=== PATIENT | female | born 1935 | race Caucasian/White ===

== ENCOUNTER → 2018-03-18 12:48 | Outpatient (CLI) | payer MEDICARE, BC, SELFPAY ==
--- NOTE | 2018-03-18 12:48 | CDU_ITS ---
Reason For Study: Carotid bruits Rt. Velocities/BP Lt. Velocities/BP Prox CCA 251.0/33.0 cm/sec. Prox CCA 88.6/20.6 cm/sec. Mid CCA 137.0/23.6 cm/sec. Mid CCA 132.0/26.5 cm/sec. Dist CCA 111.0/19.6 cm/sec. Dist CCA 113.0/22.6 cm/sec. Prox ICA 86.8/27.6 cm/sec. Prox ICA 90.4/21.6 cm/sec. Mid ICA 85.6/27.0 cm/sec. Mid ICA 110.0/32.4 cm/sec. Dist ICA 76.8/22.9 cm/sec. Dist ICA 89.2/26.0 cm/sec. Rt. ICA/CCA = .63. Lt. ICA/CCA = .83. Prox ECA 92.6/11.1 cm/sec. Prox ECA 124.0/15.7 cm/sec. Rt. Vert. 48.1/17.0 cm/sec. Lt. Vert. 15.7/6.7 cm/sec. Right Extracranial There is intimal thickening but no significant atherosclerotic plaque noted in the right common carotid artery. There is heterogeneous, irregular atherosclerotic plaque noted in the right internal carotid artery. There is intimal thickening but no significant atherosclerotic plaque noted in the right external carotid artery. Antegrade flow is noted in the right vertebral artery. Left Extracranial There is no significant atherosclerotic plaque noted in the left common carotid artery. There is heterogeneous, irregular atherosclerotic plaque noted in the left internal carotid artery. There is no significant atherosclerotic plaque noted in the left external carotid artery. Antegrade flow is noted in the left vertebral artery. Procedure Carotid Duplex [id number]. Exam performed in department. Interpretation Summary Minimal plague at the proximal right internal carotid with <50% stenosis. Minimal plague at the proximal left internal carotid with <50% stenosis. Increased velocities bilateral common carotids without plague possibly consistent with increased cardiac output--clinical correlation would be appropriate. Normal flow bilateral external carotids. Patent and antegrade bilateral vertebrals with diminished flow on the left. Ordering Physician: Zahra Linton Referring Physician: Kathy Guevara M.D. Performed By: Rosi Stanford RVT
== END ==
PROVIDERS: Family Provider Internal Medicine; PCP Internal Medicine; Visit Provider Physician Assistant Medical
DX: R09.89 Other specified symptoms and signs involving the circulatory and respiratory systems (principal)
CPT/HCPCS: 93880

== ENCOUNTER → 2018-05-24 15:11 | Outpatient (CLI) | payer MEDICARE, BC, SELFPAY ==
[2018-05-24 16:32] LABS: Absolute Lymphocyte Count 1.87 X10^3/ul (0.83-4.51); Absolute Neutrophil Count 5.1 X10^3/uL (2.0-7.7); Basophil# 0.02 X10^3/uL; Basophil% 0.3 % (0-1); Eosinophil# 0.12 X10^3/uL; Eosinophils% 1.5 % (0-5); Hematocrit 36.8 % (37-47); Hemoglobin 12.1 g/dl (12.0-15.0); Lymphocyte # 1.87 X10^3/ul (4.0); Lymphocyte % 23.9 % (19-41); Mean Corp Hgb Conc 32.9 g/gl (32-36); Mean Corpuscular Hgb 27.4 pg (27.0-32.0); Mean Corpuscular Volume 83.3 fL (81-99); Mean Platelet Vol. 10.5 fl (6.2-12.0); Monocyte# 0.75 X10^3/uL; Monocyte% 9.6 % (0-10); Neutrophil # 5.05 X10^3/uL (2.7-7.7); Neutrophil % 64.6 % (47-70); Platelet Count 239 K/mm3 (150-450); RBC Distribution Width CV 13.8 % (11.6-14.6); RBC Distribution Width SD 41.4 fl (35.1-43.9); Red Blood Count 4.42 M/mm3 (4.2-5.4); White Blood Count 7.8 K/mm3 (4.4-11.0)
[2018-05-24 16:36] LABS: POSITIVE COUNT NO; POSITIVE DIFFERENTIAL NO; POSITIVE MORPHOLOGY NO
[2018-05-24 16:45] LABS: Anion Gap 8 (5-15); BUN 17 mg/dL (7-18); BUN/Creat Ratio 15.5 RATIO (10-20); Calcium,Total 8.9 mg/dL (8.5-10.1); Chloride 102 mmol/L (98-107); EST Glomerular Filtration Rate 51 mL/min (>60); Est Glom Filt Rate - Afr Amer 61 mL/min (>60); Glucose 85 mg/dL (74-106); Potassium 3.8 mmol/L (3.5-5.1); Sodium Level 140 mmol/L (136-145)
[2018-05-24 16:56] LABS: BNP,B-Type NATRIURETIC PEPTIDE 80.2 pg/mL (0-100)
== END ==
PROVIDERS: Family Provider Internal Medicine; PCP Internal Medicine; Visit Provider Physician Assistant Medical
DX: R06.09 Other forms of dyspnea (principal); R53.83 Other fatigue
CPT/HCPCS: 36415; 80048; 83880; 85025

== ENCOUNTER → 2018-08-24 13:47 | Outpatient (CLI) | payer MEDICARE, BC, SELFPAY ==
--- NOTE | 2018-08-24 13:50 | ECHOCS_ITS ---
Procedure This was a 2D Doppler, Color Flow transthoracic echocardiogram. The study was technically difficult. Contrast injection was performed. Exam performed in department. Left Ventricle Sigmoid septum. Left ventricular systolic function is normal. The estimated ejection fraction is 65 %. There is evidence of diastolic dysfunction. No regional wall motion abnormalities noted. Right Ventricle Normal RV size. ICD or pacer leads identified within the right ventricle. Normal systolic function. Atria The left atrium is mildly enlarged. Normal right atrium. ICD or pacer leads identified within the right atrium. No doppler evidence for ASD. Mitral Valve There is moderate mitral annular calcification. Extension of the mitral annular calcification onto the posterior mitral valve leaflet. Trivial mitral valve insufficiency. Tricuspid Valve Normal tricuspid valve. Mild tricuspid valve insufficiency. Right ventricular systolic pressure estimated to be 34 mmHg. Aortic Valve Stable appearing bioprosthetic aortic valve apparatus. Pulmonic Valve The pulmonic valve is not well visualized. Great Vessels Normal sized aortic root. Pericardium/Pleural No pericardial effusion. Medication 22 gauge I.V. with prn adaptor inserted into left arm. Difficult IV stick. Diluted definity 4ml given slow IV push to enhance endocardial definition. MMode/2D Measurements & Calculations RVDd: 3.3 cm LVOT diam: 2.0 cm Ao root diam: 2.1 cm LVOT area: 3.2 cm2 LA dimension: 4.1 cm LAV(MOD-bp): 55.4 ml LA A4 area: 20.0 cm2 RA A4 area: 14.6 cm2 LAV(MOD-bp) Indexed: 30.7 ml/m2 LAV(MOD-sp2): 51.1 ml LAV(MOD-sp4): 57.4 ml Time Measurements MV dec time: 0.35 sec Doppler Measurements & Calculations MV E max kenneth: 123.6 cm/sec Lat Peak E' Kenneth: 3.0 cm/sec Med Peak E' Kenneth: 3.9 cm/sec MV A max kenneth: 153.8 cm/sec E/E' lat: 40.7 E/E' med: 31.9 MV E/A: 0.80 MV V2 max: 152.9 cm/sec Ao V2 max: 162.0 cm/sec LV V1 max: 129.8 cm/sec MV max P.3 mmHg Ao max P.6 mmHg LV V1 max P.7 mmHg MV V2 mean: 93.1 cm/sec Ao V2 mean: 112.9 cm/sec LV V1 mean P.6 mmHg MV mean P.8 mmHg Ao mean P.8 mmHg LV V1 mean: 102.8 cm/sec MV V2 VTI: 48.3 cm Ao V2 VTI: 36.6 cm LV V1 VTI: 32.0 cm MVA(VTI): 2.1 cm2 LEVAR(I,D): 2.8 cm2 LEVAR(V,D): 2.6 cm2 SV(LVOT): 103.5 ml PA V2 max: 92.2 cm/sec TR max kenneth: 278.1 cm/sec TR max P.0 mmHg Interpretation Summary The study was technically difficult. Contrast injection was performed. Left ventricular systolic function is normal. The estimated ejection fraction is 65 %. Sigmoid septum. The left atrium is mildly enlarged. There is moderate mitral annular calcification. Extension of the mitral annular calcification onto the posterior mitral valve leaflet. Trivial mitral valve insufficiency. Mild tricuspid valve insufficiency. Stable appearing bioprosthetic aortic valve apparatus. Right ventricular systolic pressure estimated to be 34 mmHg. There is evidence of diastolic dysfunction. ICD or pacer leads identified within the right atrium ICD or pacer leads identified within the right ventricle. Ordering Physician: Zahra Linton/Viraj Navarro Referring Physician: Zahra Linton Performed By: Mayela Castle, NOY, RVT
== END ==
PROVIDERS: Family Provider Internal Medicine; PCP Internal Medicine; Visit Provider Physician Assistant Medical
DX: I25.810 Atherosclerosis of coronary artery bypass graft(s) without angina pectoris (principal); I35.0 Nonrheumatic aortic (valve) stenosis; I10 Essential (primary) hypertension; G47.33 Obstructive sleep apnea (adult) (pediatric)
CPT/HCPCS: 93306; Q9957; A4216; C8929

== ENCOUNTER → 2018-11-08 13:41 | Outpatient (CLI) | payer MEDICARE, BC, SELFPAY | PROVIDERS: Family Provider Internal Medicine; PCP Internal Medicine; Visit Provider Nurse Practitioner Acute Care | DX: G47.33 Obstructive sleep apnea (adult) (pediatric) (principal) | CPT/HCPCS: 98960; G0463 ==

== ENCOUNTER → 2019-02-15 07:30 | Outpatient (CLI) | payer MEDICARE, BC, SELFPAY ==
--- NOTE | 2019-02-15 10:38 | NEURO ---
NCS and/or EMG Patient Report Ordering Doctor: Braxton Carrero DATE OF SERVICE: 02/15/19 Is a right upper extremity EMG and nerve conduction study performed on this 83-year-old female with a history of severe carpal tunnel syndrome previously diagnosed in 2016. Patient did have carpal tunnel release but reports symptoms have worsened. She is healthy otherwise. Right upper extremity sensory and motor nerve conduction studies performed. The median sensory response on the right is not obtainable, the median motor distal latency is mild to moderately prolonged with severely reduced amplitude and conduction velocity. Compared to the study from 10/22/2016, there is improved distal latency in the right median motor nerve with unchanged amplitude and conduction velocity. The ulnar motor and sensory and radial sensory responses are normal. There is prolongation of the median F wave latency. Right upper extremity needle electromyography is performed. Muscles evaluated included the first dorsal interosseous, abductor pollicis brevis, brachioradialis, biceps, triceps and deltoid muscles. There are large motor units with early recruitment and pathologic spontaneous activity noted in the right abductor pollicis brevis muscle. All other muscles demonstrated normal insertional activity with absence of pathologic spontaneous activity. Motor unit potential recruitment pattern and amplitude was otherwise normal. Impression: Abnormal electrophysiologic study of the right upper extremity consistent with severe carpal tunnel syndrome at the right wrist. Comparison to previous study shows stable/improved conduction of the right median motor nerve however this should be clinically correlated.
== END ==
PROVIDERS: Family Provider Internal Medicine; PCP Internal Medicine; Referring Provider Orthopaedic Surgery; Visit Provider Orthopaedic Surgery
DX: G56.01 Carpal tunnel syndrome, right upper limb (principal)
CPT/HCPCS: 95886; 95909

== ENCOUNTER → 2019-05-05 11:00 | Outpatient (CLI) | payer MEDICARE, BC, SELFPAY ==
[2019-02-28 10:39] VITALS: BMI 31.3
== END ==
PROVIDERS: Family Provider Internal Medicine; PCP Internal Medicine; Referring Provider Nurse Practitioner Family; Visit Provider Nurse Practitioner Family
DX: G47.33 Obstructive sleep apnea (adult) (pediatric) (principal)
CPT/HCPCS: 98960; G0463

== ENCOUNTER → 2019-08-09 09:47 | Outpatient (CLI) | payer MEDICARE, BC, SELFPAY ==
[2019-02-28 10:39] VITALS: BMI 31.3
--- NOTE | 2019-08-09 09:49 | ECHOCS_ITS ---
Reason For Study: valve replacement - eval Procedure This was a 2D Doppler, Color Flow transthoracic echocardiogram. The study was technically difficult. Due to diminished accoustic windows. Contrast injection was performed. Exam performed in department. Left Ventricle Normal LV size. Left ventricular systolic function is normal. The estimated ejection fraction is 65 %. There is evidence of diastolic dysfunction. No regional wall motion abnormalities noted. Right Ventricle Normal RV size. ICD or pacer leads identified within the right ventricle. Normal systolic function. Atria The left atrium is moderately enlarged. Normal right atrium. ICD or pacer leads identified within the right atrium. No doppler evidence for ASD. Mitral Valve There is moderate mitral annular calcification. Extension of the mitral annular calcification onto the posterior mitral valve leaflet. Trivial mitral valve insufficiency. Tricuspid Valve Normal tricuspid valve. Mild tricuspid valve insufficiency. Right ventricular systolic pressure estimated to be 27 mmHg. Aortic Valve Stable appearing bioprosthetic aortic valve apparatus. Pulmonic Valve The pulmonic valve is not well visualized. Trivial pulmonic valve insufficiency identified. Great Vessels Normal sized aortic root. Pericardium/Pleural No pericardial effusion. Medication 22 gauge I.V. with prn adaptor inserted into right arm. Diluted definity 4.0ml given slow IV push to enhance endocardial definition. MMode/2D Measurements & Calculations LVIDd: 3.9 cm IVSd: 1.0 cm LVOT diam: 2.0 cm LVIDs: 2.6 cm LVPWd: 1.0 cm FS: 32.5 % LVOT area: 3.1 cm2 Ao root diam: 2.1 cm LAV(MOD-bp): 99.7 ml LA A4 area: 26.5 cm2 LAV(MOD-bp) Indexed: 55.3 ml/m2 LAV(MOD-sp2): 98.6 ml LAV(MOD-sp4): 98.3 ml LA dimension(2D): 3.8 cm RA A4 area: 16.8 cm2 Time Measurements MV dec time: 0.47 sec Doppler Measurements & Calculations MV E max kenneth: 128.4 cm/sec Lat Peak E' Kenneth: 4.6 cm/sec Med Peak E' Kenneth: 3.8 cm/sec MV A max kenneth: 165.1 cm/sec E/E' lat: 27.6 E/E' med: 33.9 MV E/A: 0.78 MV V2 max: 187.7 cm/sec MV P1/2t max kenneth: 140.1 cm/sec Ao V2 max: 167.2 cm/sec MV max P.1 mmHg MV P1/2t: 139.9 msec Ao max P.2 mmHg MV V2 mean: 106.4 cm/sec MV dec slope: 293.3 cm/sec2 Ao V2 mean: 128.4 cm/sec MV mean P.1 mmHg Ao mean P.1 mmHg MV V2 VTI: 60.3 cm MVA(P1/2t): 1.6 cm2 Ao V2 VTI: 38.1 cm MVA(VTI): 1.6 cm2 LEVAR(I,D): 2.5 cm2 LEVAR(V,D): 2.9 cm2 LV V1 max: 154.7 cm/sec SV(LVOT): 95.1 ml PA V2 max: 91.4 cm/sec LV V1 max P.6 mmHg LV V1 mean P.1 mmHg LV V1 mean: 106.8 cm/sec LV V1 VTI: 30.6 cm TR max kenneth: 243.3 cm/sec TR max P.9 mmHg Interpretation Summary The study was technically difficult. Contrast injection was performed. Left ventricular systolic function is normal. The estimated ejection fraction is 65 %. The left atrium is moderately enlarged. There is moderate mitral annular calcification. Extension of the mitral annular calcification onto the posterior mitral valve leaflet. Trivial mitral valve insufficiency. Mild tricuspid valve insufficiency. Stable appearing bioprosthetic aortic valve apparatus. Trivial pulmonic valve insufficiency identified. Right ventricular systolic pressure estimated to be 27 mmHg. There is evidence of diastolic dysfunction. ICD or pacer leads identified within the right atrium ICD or pacer leads identified within the right ventricle. Ordering Physician: Viraj Navarro Referring Physician: Kathy Guevara Performed By: Claudia Munoz, RDCS, RVT
== END ==
PROVIDERS: Family Provider Internal Medicine; PCP Internal Medicine; Referring Provider Internal Medicine Cardiovascular Disease; Visit Provider Internal Medicine Cardiovascular Disease
DX: I25.810 Atherosclerosis of coronary artery bypass graft(s) without angina pectoris (principal); Z95.3 Presence of xenogenic heart valve
CPT/HCPCS: 93306; Q9957; A4216; C8929

== ENCOUNTER → 2019-08-24 10:14 | Outpatient (CLI) | payer MEDICARE, BC, SELFPAY ==
[2019-02-28 10:39] VITALS: BMI 31.3
--- NOTE | 2019-08-24 10:18 | RAD_ITS ---
STUDY: X-RAY - RIGHT HAND REASON FOR EXAM: Female, 83 years old. Osteoarthritis bilateral hands TECHNIQUE: 3 view(s) of the hand. COMPARISON: None. FINDINGS: Normal radiocarpal articulation. Normal distal radioulnar joint. Normal visualized carpal bones. Normal carpal articulations Normal carpometacarpal articulation of the thumb. Normal second through fifth carpometacarpal joints. Normal metacarpi. There is degenerative arthrosis of the metacarpophalangeal (MCP) joints. Normal interphalangeal joint of the thumb. Normal proximal and distal phalanges of the thumb. Normal metacarpophalangeal joints of the second through fifth fingers. There are mild arthritic changes of the second and third DIP joints. Normal phalanges of the second through fifth fingers. There are several tiny linear radiopaque foreign bodies in the thenar eminence. RAD/Hand Min 3 Views IMPRESSION: Mild arthritic changes of the second and third DIP joints and first metacarpophalangeal joint. There are several tiny linear radiopaque foreign bodies in the thenar eminence. Electronically Signed: Florentino Mustafa MD at 17:25 EDT , Service support ,
--- NOTE | 2019-08-24 10:18 | RAD_ITS ---
STUDY: X-RAY - LEFT HAND REASON FOR EXAM: Female, 83 years old. Osteoarthritis TECHNIQUE: 3 view(s) of the hand. COMPARISON: None. FINDINGS: Normal radiocarpal articulation. Normal distal radioulnar joint. Normal visualized carpal bones. Normal carpal articulations Normal carpometacarpal articulation of the thumb. Normal second through fifth carpometacarpal joints. Normal metacarpi. There is degenerative arthrosis of the metacarpophalangeal (MCP) joints. Normal interphalangeal joint of the thumb. Normal proximal and distal phalanges of the thumb. Normal metacarpophalangeal joints of the second through fifth fingers. There mild arthritic changes of the second through fifth DLP joints. There is a tiny old chip fracture of the base of the fifth proximal phalanx. Several small amorphous soft tissue calcifications are noted in the second, third, and fifth fingers. RAD/Hand Min 3 Views IMPRESSION: Mild arthritic changes as detailed above. Old tiny chip fracture the base of the fifth proximal phalanx. Electronically Signed: Florentino Mustafa MD at 17:26 EDT , Service support ,
[2019-08-24 12:28] LABS: Erythrocyte Sedimentation Rate 17 mm/hr (0-30)
[2019-08-24 12:32] LABS: Absolute Lymphocyte Count 1.52 X10^3/uL (0.83-4.51); Absolute Neutrophil Count 4.4 X10^3/uL (2.0-7.7); Basophil# 0.03 X10^3/uL; Basophil% 0.5 % (0-1); Eosinophil# 0.15 X10^3/uL; Eosinophils% 2.3 % (0-5); Hematocrit 37.5 % (37-47); Hemoglobin 11.8 g/dL (12.0-15.0); Lymphocyte # 1.52 X10^3/ul (4.0); Lymphocyte % 23.1 % (19-41); Mean Corp Hgb Conc 31.5 g/dL (32-36); Mean Corpuscular Hgb 27.1 pg (27.0-32.0); Mean Platelet Vol. 10.6 fl (6.2-12.0); Monocyte# 0.46 X10^3/uL; NRBC Flagged by Analyzer 0 % (0-5); Neutrophil # 4.39 X10^3/uL (2.7-7.7); Neutrophil % 66.8 % (47-70); Platelet Count 207 K/mm3 (150-450); RBC Distribution Width CV 13.7 % (11.6-14.6); RBC Distribution Width SD 42.9 fl (35.1-43.9); Red Blood Count 4.36 M/mm3 (4.2-5.4); White Blood Count 6.6 K/mm3 (4.4-11.0)
[2019-08-24 12:59] LABS: AST(SGOT) 26 U/L (15-37); Alanine Aminotransfer ALT/SGPT 29 U/L (13-56); Albumin, Serum 3.8 g/dL (3.2-5.0); Alkaline Phosphatase 91 U/L (45-117); Anion Gap 6 (5-15); BUN 23 mg/dL (7-18); BUN/Creat Ratio 23.6 RATIO (10-20); CRP < 2.90 mg/L (0.0-3.0); Calcium,Total 9.5 mg/dL (8.5-10.1); Chloride 107 mmol/L (98-107); Creatinine, Serum 0.98 mg/dL (0.55-1.02); EST Glomerular Filtration Rate 58 mL/min (>60); Est Glom Filt Rate - Afr Amer 70 mL/min (>60); Globulin 3.9 g/dL (2.2-4.2); Glucose 92 mg/dL (74-106); Potassium 3.7 mmol/L (3.5-5.1); Protein, Total 7.7 g/dL (6.4-8.2); Rheumatoid Factor < 10.0 IU/mL (<15); Sodium Level 143 mmol/L (136-145)
[2019-08-24 13:38] LABS: Hepatitis B Surface Antibody Reactive; Hepatitis B Surface Antigen Non-Reactive (Nonreactive); Hepatitis C Antibody Non-Reactive (Nonreactive)
[2019-08-25 14:55] LABS: ANTINUCLEAR ANTIBODIES DIRECT Negative (Negative)
[2019-08-28 13:42] LABS: CCP IgG Antibodies 12 units (0-19); Hepatitis B Core AB IgM Negative (Negative)
== END ==
PROVIDERS: Family Provider Internal Medicine; PCP Internal Medicine; Referring Provider Internal Medicine Rheumatology; Visit Provider Internal Medicine Rheumatology
DX: M06.4 Inflammatory polyarthropathy (principal); M19.041 Primary osteoarthritis, right hand; M19.042 Primary osteoarthritis, left hand; G56.03 Carpal tunnel syndrome, bilateral upper limbs; M48.061 Spinal stenosis, lumbar region without neurogenic claudication; I10 Essential (primary) hypertension; E03.9 Hypothyroidism, unspecified; E78.5 Hyperlipidemia, unspecified
CPT/HCPCS: 36415; 73130; 80053; 85025; 85652; 86038; 86140; 86200; 86431; 86705; 86706; 86803; 87340

== ENCOUNTER → 2019-10-24 09:05 | Outpatient (CLI) | payer MEDICARE, BC, SELFPAY ==
[2019-09-20 10:38] VITALS: BMI 31.8
[2019-10-24 10:24] LABS: Absolute Lymphocyte Count 1.25 X10^3/uL (0.83-4.51); Absolute Neutrophil Count 4.8 X10^3/uL (2.0-7.7); Basophil# 0.03 X10^3/uL; Basophil% 0.4 % (0-1); Hematocrit 34.5 % (37-47); Lymphocyte # 1.25 X10^3/ul (4.0); Lymphocyte % 18.5 % (19-41); Mean Corp Hgb Conc 31.9 g/dL (32-36); Mean Corpuscular Hgb 27.6 pg (27.0-32.0); Mean Corpuscular Volume 86.5 fL (81-99); Mean Platelet Vol. 10.4 fl (6.2-12.0); Monocyte# 0.46 X10^3/uL; Monocyte% 6.8 % (0-10); NRBC Flagged by Analyzer 0 % (0-5); Neutrophil # 4.79 X10^3/uL (2.7-7.7); Platelet Count 260 K/mm3 (150-450); RBC Distribution Width CV 13.9 % (11.6-14.6); Red Blood Count 3.99 M/mm3 (4.2-5.4); White Blood Count 6.8 K/mm3 (4.4-11.0)
[2019-10-24 10:37] LABS: ALB/GLOB Ratio 1.1 RATIO (0.9-2.4); AST(SGOT) 32 U/L (15-37); Alanine Aminotransfer ALT/SGPT 29 U/L (13-56); Albumin, Serum 3.7 g/dL (3.2-5.0); Alkaline Phosphatase 82 U/L (45-117); Anion Gap 6 (5-15); BUN 11 mg/dL (7-18); BUN/Creat Ratio 10.4 RATIO (10-20); Calcium,Total 9.4 mg/dL (8.5-10.1); Chloride 102 mmol/L (98-107); Creatinine, Serum 1.06 mg/dL (0.55-1.02); EST Glomerular Filtration Rate 53 mL/min (>60); Est Glom Filt Rate - Afr Amer 64 mL/min (>60); Globulin 3.5 g/dL (2.2-4.2); Glucose 102 mg/dL (74-106); Potassium 3.9 mmol/L (3.5-5.1); Protein, Total 7.2 g/dL (6.4-8.2); Sodium Level 137 mmol/L (136-145)
== END ==
PROVIDERS: Family Provider Internal Medicine; PCP Internal Medicine; Referring Provider Internal Medicine Rheumatology; Visit Provider Internal Medicine Rheumatology
DX: M06.4 Inflammatory polyarthropathy (principal); M19.041 Primary osteoarthritis, right hand; G56.03 Carpal tunnel syndrome, bilateral upper limbs; M48.061 Spinal stenosis, lumbar region without neurogenic claudication; I10 Essential (primary) hypertension; E03.9 Hypothyroidism, unspecified; E78.5 Hyperlipidemia, unspecified; G47.33 Obstructive sleep apnea (adult) (pediatric); I25.10 Atherosclerotic heart disease of native coronary artery without angina pectoris; Z95.3 Presence of xenogenic heart valve; Z95.0 Presence of cardiac pacemaker
CPT/HCPCS: 36415; 80053; 85025

== ENCOUNTER → 2020-01-25 12:20 | Outpatient (CLI) | payer MEDICARE, BC, SELFPAY ==
[2019-09-20 10:38] VITALS: BMI 31.8
[2020-01-25 14:09] LABS: Absolute Lymphocyte Count 1.05 X10^3/uL (0.83-4.51); Absolute Neutrophil Count 3.3 X10^3/uL (2.0-7.7); Basophil# 0.04 X10^3/uL; Basophil% 0.8 % (0-1); Eosinophil# 0.28 X10^3/uL; Eosinophils% 5.3 % (0-5); Hematocrit 31.4 % (37-47); Hemoglobin 9.9 g/dL (12.0-15.0); Lymphocyte # 1.05 X10^3/ul (4.0); Mean Corp Hgb Conc 31.5 g/dL (32-36); Mean Corpuscular Hgb 27.3 pg (27.0-32.0); Mean Corpuscular Volume 86.5 fL (81-99); Mean Platelet Vol. 10.3 fl (6.2-12.0); Monocyte% 11.4 % (0-10); NRBC Flagged by Analyzer 0 % (0-5); Neutrophil # 3.28 X10^3/uL (2.7-7.7); Neutrophil % 62.3 % (47-70); Platelet Count 262 K/mm3 (150-450); RBC Distribution Width CV 14.6 % (11.6-14.6); RBC Distribution Width SD 45.1 fl (35.1-43.9); Red Blood Count 3.63 M/mm3 (4.2-5.4); White Blood Count 5.3 K/mm3 (4.4-11.0)
[2020-01-25 14:24] LABS: ALB/GLOB Ratio 0.9 RATIO (0.9-2.4); AST(SGOT) 25 U/L (15-37); Alanine Aminotransfer ALT/SGPT 26 U/L (13-56); Albumin, Serum 3.4 g/dL (3.2-5.0); Alkaline Phosphatase 72 U/L (45-117); Anion Gap 5 (5-15); BUN 17 mg/dL (7-18); Calcium,Total 9.1 mg/dL (8.5-10.1); Chloride 98 mmol/L (98-107); EST Glomerular Filtration Rate 57 mL/min (>60); Est Glom Filt Rate - Afr Amer 68 mL/min (>60); Globulin 3.6 g/dL (2.2-4.2); Glucose 97 mg/dL (74-106); Potassium 3.7 mmol/L (3.5-5.1); Sodium Level 131 mmol/L (136-145)
== END ==
PROVIDERS: PCP Internal Medicine; Referring Provider Internal Medicine Rheumatology; Visit Provider Internal Medicine Rheumatology
DX: M06.4 Inflammatory polyarthropathy (principal); M19.041 Primary osteoarthritis, right hand; G56.03 Carpal tunnel syndrome, bilateral upper limbs; M48.061 Spinal stenosis, lumbar region without neurogenic claudication; I10 Essential (primary) hypertension; E03.9 Hypothyroidism, unspecified; E78.5 Hyperlipidemia, unspecified; G47.33 Obstructive sleep apnea (adult) (pediatric); I25.10 Atherosclerotic heart disease of native coronary artery without angina pectoris; Z95.3 Presence of xenogenic heart valve; Z95.0 Presence of cardiac pacemaker; Z79.899 Other long term (current) drug therapy
CPT/HCPCS: 36415; 80053; 85025

== ENCOUNTER → 2020-02-16 10:14 | Outpatient (CLI) | payer MEDICARE, BC, SELFPAY ==
[2019-09-20 10:38] VITALS: BMI 31.8
--- NOTE | 2020-02-16 10:25 | RAD_ITS ---
STUDY: X-RAY CHEST REASON FOR EXAM: Female, 84 years old. Cough TECHNIQUE: PA and lateral views of the chest. COMPARISON: 03/24/2016. FINDINGS: Median sternotomy wires. Left-sided cardiac device. A vascular stent and mediastinal clips are noted. Cardiac silhouette unremarkable. Pulmonary vascularity unremarkable. Aorta unremarkable. No focal airspace opacities. No pleural effusions. Moderate to large sized hiatal hernia. Osseous structures intact. No pneumothorax. RAD/Chest PA and Lateral IMPRESSION: No acute cardiopulmonary findings Electronically Signed: Junior Curry, at 21:18 EDT Tel , Service support ,
== END ==
PROVIDERS: PCP Internal Medicine; Referring Provider Internal Medicine; Visit Provider Internal Medicine
DX: R05 Cough (principal)
CPT/HCPCS: 71046

== ENCOUNTER → 2020-03-27 10:57 | Outpatient (CLI) | payer MEDICARE, BC, SELFPAY ==
[2019-09-20 10:38] VITALS: BMI 31.8
[2020-03-27 12:30] LABS: Absolute Lymphocyte Count 1.42 X10^3/uL (0.83-4.51); Absolute Neutrophil Count 5.1 X10^3/uL (2.0-7.7); Basophil# 0.04 X10^3/uL; Basophil% 0.5 % (0-1); Eosinophil# 0.11 X10^3/uL; Eosinophils% 1.5 % (0-5); Hemoglobin 10.8 g/dL (12.0-15.0); Lymphocyte # 1.42 X10^3/ul (4.0); Lymphocyte % 19.5 % (19-41); Mean Corp Hgb Conc 31.8 g/dL (32-36); Mean Corpuscular Hgb 27.3 pg (27.0-32.0); Mean Corpuscular Volume 86.1 fL (81-99); Mean Platelet Vol. 10.1 fl (6.2-12.0); Monocyte% 8.2 % (0-10); NRBC Flagged by Analyzer 0 % (0-5); Neutrophil % 69.9 % (47-70); Platelet Count 310 K/mm3 (150-450); RBC Distribution Width CV 15.5 % (11.6-14.6); RBC Distribution Width SD 47.8 fl (35.1-43.9); Red Blood Count 3.95 M/mm3 (4.2-5.4); White Blood Count 7.3 K/mm3 (4.4-11.0)
[2020-03-27 12:36] LABS: ALB/GLOB Ratio 1.1 RATIO (0.9-2.4); AST(SGOT) 25 U/L (15-37); Alanine Aminotransfer ALT/SGPT 27 U/L (13-56); Alkaline Phosphatase 83 U/L (45-117); Anion Gap 2 (5-15); BUN 16 mg/dL (7-18); BUN/Creat Ratio 17.7 RATIO (10-20); Calcium,Total 9.4 mg/dL (8.5-10.1); Chloride 101 mmol/L (98-107); EST Glomerular Filtration Rate 63 mL/min (>60); Est Glom Filt Rate - Afr Amer 77 mL/min (>60); Globulin 3.8 g/dL (2.2-4.2); Glucose 100 mg/dL (74-106); Potassium 3.7 mmol/L (3.5-5.1); Protein, Total 7.8 g/dL (6.4-8.2); Sodium Level 134 mmol/L (136-145)
== END ==
PROVIDERS: PCP Internal Medicine; Referring Provider Internal Medicine Rheumatology; Visit Provider Internal Medicine Rheumatology
DX: M06.4 Inflammatory polyarthropathy (principal); M19.041 Primary osteoarthritis, right hand; M19.042 Primary osteoarthritis, left hand; G56.03 Carpal tunnel syndrome, bilateral upper limbs; M48.061 Spinal stenosis, lumbar region without neurogenic claudication; I10 Essential (primary) hypertension; E03.9 Hypothyroidism, unspecified; E78.5 Hyperlipidemia, unspecified; G47.33 Obstructive sleep apnea (adult) (pediatric); I25.10 Atherosclerotic heart disease of native coronary artery without angina pectoris; Z95.3 Presence of xenogenic heart valve; Z95.0 Presence of cardiac pacemaker; Z79.899 Other long term (current) drug therapy
CPT/HCPCS: 36415; 80053; 85025

== ENCOUNTER 2020-06-22 10:25 | Emergency (ER) | payer MEDICARE, BC, SELFPAY ==
[2020-06-20 14:25] VITALS: BMI 31.8
[2020-06-22 10:26] VITALS: BP 159/81; PULSE 73; RESP 16; TEMP 36.7; O2SAT 99; BMI 34.7
--- NOTE | 2020-06-22 10:45 | CT_ITS ---
STUDY: CT BRAIN WITHOUT CONTRAST REASON FOR EXAM: Female, 84 years old. HEADACHE since Thursday. Hx of 5 vessels CABG, pacer and aortic valve replacement RADIATION DOSAGE (If Supplied By Facility): CTDIvol = ( 44.99 ) mGy, DLP = ( 796.11 ) mGycm TECHNIQUE: Transaxial CT imaging of the brain was performed without administration of intravenous contrast material. Individualized dose optimization techniques were used for this CT. COMPARISON: No relevant priors. FINDINGS: Normal soft tissue structures. Normal calvarium. There is moderate cerebral atrophy with widening of the extra-axial spaces and ventricular dilatation. There are areas of decreased attenuation within the white matter tracts of the supratentorial brain, consistent with microvascular disease changes. 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 Normal brainstem. Normal cerebellum. There is no intracranial hemorrhage. There are no findings of an acute ischemic infarction. Normal visualized paranasal sinuses. CT/Brain/Head without Contrast IMPRESSION: Chronic involutional changes of the brain. 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
--- NOTE | 2020-06-22 10:48 | ED.VIS.GEN ---
History of Present Illness Chief Complaint: Headache Narrative: 84-year-old female with past medical history of hypertension, coronary artery disease, and hyperlipidemia presents with concern for headache. States that it began approximately 3 days ago. States that she was at rest whenever began. States it was not maximal at onset. States it is been intermittent over this period of time. States that it is in the back of her neck and then the back of her head as well as the left side of her head. Denies any vision change, fever, chills, cough, urinary symptoms. States that she spoke with her primary care provider who sent her to the emergency department for further evaluation. Is not currently having a headache. States that she did have intermittent symptoms this morning. Past Medical History - Allergies and Home Meds Allergies/Adverse Reactions: Allergies JESUS Inhibitors Allergy (Verified 06/22/20 10:28) Unknown amoxicillin Allergy (Verified 06/22/20 10:28) Unknown Penicillins Allergy (Verified 06/22/20 10:28) Unknown dicoferal Allergy (Uncoded 06/22/20 10:28) Unknown Primary Care Physician: Kathy Guevara MD [Primary Care Provider] - Past Medical History: - - HTN, HLD, SSS Surgical History: cholecystectomy, total knee arthroplasty - right knee replacement 07/2009, - - 4 C-sections, CABG 2004, Smoking Status: Never smoker Alcohol: None Drugs: None Review of Systems General: Denies: Chills, Fever, Sweats Eyes: Denies: Visual changes - bilaterally, Diplopia ENT: Denies: Rhinorrhea, Sore throat Cardiovascular: Denies: Chest pain, Palpitations Respiratory: Denies: Dyspnea, Cough, Dyspnea on exertion Gastrointestinal: Denies: Abdominal pain, Nausea, Vomiting, Diarrhea, Melena, Hematochezia Genitourinary: Denies: Dysuria, Hematuria, Frequency Musculoskeletal: Denies: Back pain, Extremity Pain Skin: Denies: Rash, Wounds Neurological: Reports: Headache. Denies: Weakness, Numbness Physical Exam Vital Signs/Narrative: Vital Signs Temp Pulse Resp BP Pulse Ox 06/22/20 10:26 98.1 F 73 16 159/81 H 99 Inital Vital Signs reviewed: Yes General: Well nourished, Well developed, No Acute Distress Head: Normocephalic, Atraumatic Eyes: Perrl, EOMI ENT: Moist mucous membranes, No rhinorrhea Neck: Supple, Nontender Cardiovascular: Regular rate, Regular rhythm, No murmurs Respiratory: No distress, CTA bilaterally, Chest nontender Abdomen: Soft, Nontender, Nondistended, Normal bowel sounds Back: Nontender, Normal Inspection Extremities: Nontender, No edema Skin: Normal color, No rash Neurological: Alert, Oriented x3, Cranial nerves II-XII grossly intact, Normal Strength, Normal Sensation Psychological: Normal affect, Normal Mood Diagnostic/Tx/Re-eval Clinical Impression(s) from Imaging Studies Brain CT 06/22/20 10:45 IMPRESSION: Chronic involutional changes of the brain. 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 Vital signs within normal limits. No focal neurologic deficit. No change in vision. No signs of meningismus. CT brain negative. ESR negative. Patient will be referred back to her primary care provider and asked to return for any new or worsening symptoms. Tylenol for any further headache. Patient agreeable and discharged home in stable condition Pression: 1. Headache 2. Diarrhea?resolved ED Disposition - Plan for ED Patient: Disposition: Home or Assisted Living Instructions: ED Headache Unspecified Referrals: Kathy Guevara MD [Primary Care Provider] -
[2020-06-22 11:23] LABS: Erythrocyte Sedimentation Rate 27 mm/hr (0-30)
[2020-06-22 12:14] VITALS: BP 133/73; PULSE 68; RESP 16; O2SAT 98
== END 2020-06-22 12:17 | disposition home or self-care (01) ==
PROVIDERS: Emergency Provider Emergency Medicine; PCP Internal Medicine
DX: R51 Headache (principal); R19.7 Diarrhea, unspecified; I25.10 Atherosclerotic heart disease of native coronary artery without angina pectoris; I10 Essential (primary) hypertension; E78.5 Hyperlipidemia, unspecified; Z95.1 Presence of aortocoronary bypass graft; Z79.82 Long term (current) use of aspirin; Z79.899 Other long term (current) drug therapy
CPT/HCPCS: 36415; 70450; 85652; 99282

== ENCOUNTER → 2020-06-28 10:43 | Outpatient (CLI) | payer MEDICARE, BC, SELFPAY ==
[2020-06-20 14:25] VITALS: BMI 31.8
[2020-06-22 10:26] VITALS: BMI 34.7
== END ==
PROVIDERS: PCP Internal Medicine; Referring Provider Internal Medicine Critical Care Medicine; Visit Provider Internal Medicine Critical Care Medicine
DX: G47.33 Obstructive sleep apnea (adult) (pediatric) (principal)
CPT/HCPCS: 98960; G0463

== ENCOUNTER → 2021-08-20 11:03 | Outpatient (CLI) | payer MEDICARE, BC, SELFPAY ==
[2021-03-20 13:44] VITALS: BMI 32.6
--- NOTE | 2021-08-20 11:04 | ECHOD_ITS ---
Reason For Study: Valve Replacement Eval Procedure This was a 2D Doppler, Color Flow transthoracic echocardiogram. The study was technically difficult. Contrast injection was performed. Exam performed in department. Left Ventricle Left ventricular systolic function is normal. The estimated ejection fraction is 65 %. There is evidence of diastolic dysfunction. No regional wall motion abnormalities noted. Right Ventricle Normal RV size. ICD or pacer leads identified within the right ventricle. Normal systolic function. Atria The left atrium is moderately enlarged. Normal right atrium. ICD or pacer leads identified within the right atrium. No doppler evidence for ASD. Mitral Valve There is moderate mitral annular calcification. Extension of the mitral annular calcification onto the base of the posterior mitral valve leaflet. Moderate mitral valve stenosis. Mild (1+) eccentric mitral valve insufficiency. Tricuspid Valve Normal tricuspid valve. Trivial tricuspid valve insufficiency. Right ventricular systolic pressure estimated to be 25 mmHg. Aortic Valve Stable appearing bioprosthetic aortic valve apparatus. Pulmonic Valve The pulmonic valve is not well visualized. Great Vessels The aortic root is not well visualized. Pericardium/Pleural No pericardial effusion. Medication 22 gauge I.V. with prn adaptor inserted into right arm. Diluted definity 2.4ml given slow IV push to enhance endocardial definition. MMode/2D Measurements & Calculations RVDd: 3.7 cm LVOT diam: 2.0 cm LAV(MOD-bp): 84.1 ml LVOT area: 3.0 cm2 LAV(MOD-bp) Indexed: 46.2 ml/m2 LAV(MOD-sp2): 78.6 ml LAV(MOD-sp4): 81.7 ml LA A4 area: 24.8 cm2 RA A4 area: 13.3 cm2 Time Measurements MV dec time: 0.43 sec Doppler Measurements & Calculations MV E max kenneth: 127.3 cm/sec Lat Peak E' Kenneth: 4.9 cm/sec Med Peak E' Kenneth: 3.0 cm/sec MV A max kenneth: 170.9 cm/sec E/E' lat: 25.9 E/E' med: 42.0 MV E/A: 0.74 MV V2 max: 201.3 cm/sec MV P1/2t max kenneth: 152.2 cm/sec Ao V2 max: 239.0 cm/sec MV max P.2 mmHg MV P1/2t: 157.6 msec Ao max P.9 mmHg MV V2 mean: 116.7 cm/sec Ao V2 mean: 157.4 cm/sec MV mean P.2 mmHg MV dec slope: 282.8 cm/sec2 Ao mean P.6 mmHg MV V2 VTI: 67.7 cm MVA(P1/2t): 1.4 cm2 Ao V2 VTI: 51.4 cm MVA(VTI): 1.2 cm2 LEVAR(I,D): 1.6 cm2 LEVAR(V,D): 1.6 cm2 LV V1 max: 124.0 cm/sec SV(LVOT): 82.3 ml PA V2 max: 83.8 cm/sec LV V1 max P.2 mmHg LV V1 mean P.6 mmHg LV V1 mean: 87.8 cm/sec LV V1 VTI: 27.5 cm TR max kenneth: 235.8 cm/sec TR max P.2 mmHg ECHO/Echo Complete W/ Contrast Interpretation Summary The study was technically difficult. Contrast injection was performed. Left ventricular systolic function is normal. The estimated ejection fraction is 65 %. The left atrium is moderately enlarged. There is moderate mitral annular calcification. Extension of the mitral annular calcification onto the base of the posterior mi tral valve leaflet. Moderate mitral valve stenosis. Mild (1+) eccentric mitral valve insufficiency. Trivial tricuspid valve insufficiency. Stable appearing bioprosthetic aortic valve apparatus. Right ventricular systolic pressure estimated to be 25 mmHg. There is evidence of diastolic dysfunction. ICD or pacer leads identified within the right atrium ICD or pacer leads identified within the right ventricle. Ordering Physician: Viraj Navarro Referring Physician: Kathy Guevara M.D. Performed By: Davey Shipley RCS
== END ==
PROVIDERS: PCP Internal Medicine; Referring Provider Internal Medicine Cardiovascular Disease; Visit Provider Internal Medicine Cardiovascular Disease
DX: I25.810 Atherosclerosis of coronary artery bypass graft(s) without angina pectoris (principal)
CPT/HCPCS: 93306; Q9957; A4216; C8929; J3490

== ENCOUNTER → 2022-10-09 | Outpatient (CLI) | payer MEDICARE, BC, SELFPAY ==
--- NOTE | 2022-10-09 08:46 | ECHOCS_ITS ---
Reason For Study: Valve Replacement Eval Procedure This was a 2D Doppler, Color Flow transthoracic echocardiogram. The study was technically difficult. Contrast injection was performed. Exam performed in department. Left Ventricle Normal LV size. Left ventricular systolic function is normal. The estimated ejection fraction is 65 %. Septal motion consistent with IVCD. Stage 2 diastolic dysfunction. Right Ventricle Normal RV size. ICD or pacer leads identified within the right ventricle. Normal systolic function. Atria The left atrium is moderately enlarged. Normal right atrium. ICD or pacer leads identified within the right atrium. No doppler evidence for ASD. Mitral Valve There is moderate mitral annular calcification. Extension of the mitral annular calcification onto the base of the posterior mitral valve leaflet. Moderate mitral valve stenosis. Mild (1+) mitral valve insufficiency. Tricuspid Valve Normal tricuspid valve. Mild to moderate (1-2+) eccentric tricuspid valve insufficiency. Right ventricular systolic pressure estimated to be 30 mmHg. Aortic Valve Stable appearing bioprosthetic aortic valve apparatus. Pulmonic Valve The pulmonic valve is not well visualized. Great Vessels Normal sized aortic root. Pericardium/Pleural No pericardial effusion. Medication 20 gauge I.V. with prn adaptor inserted into left arm. Diluted definity 1.5ml given slow IV push to enhance endocardial definition. MMode/2D Measurements & Calculations LVIDd: 5.0 cm IVSd: 0.95 cm LVOT diam: 2.0 cm LVIDs: 3.9 cm LVPWd: 1.1 cm RVDd: 3.9 cm FS: 22.9 % LVOT area: 3.0 cm2 Ao root diam: 2.2 cm LAV(MOD-bp): 78.5 ml LA A4 area: 25.9 cm2 LA dimension: 4.8 cm LAV(MOD-bp) Indexed: 45.0 ml/m2 LAV(MOD-sp2): 69.3 ml LAV(MOD-sp4): 84.5 ml RA A4 area: 16.2 cm2 Time Measurements MV dec time: 0.23 sec Doppler Measurements & Calculations MV E max kenneth: 171.1 cm/sec Lat Peak E' Kenneth: 5.2 cm/sec Med Peak E' Kenneth: 4.7 cm/sec MV A max kenneth: 112.1 cm/sec E/E' lat: 33.0 E/E' med: 36.2 MV E/A: 1.5 MV V2 max: 176.2 cm/sec MV P1/2t max kenneth: 176.8 cm/sec Ao V2 max: 217.5 cm/sec MV max P.4 mmHg MV P1/2t: 67.9 msec Ao max P.9 mmHg MV V2 mean: 95.2 cm/sec MV dec slope: 763.0 cm/sec2 Ao V2 mean: 152.0 cm/sec MV mean P.4 mmHg Ao mean P.5 mmHg MV V2 VTI: 42.3 cm MVA(P1/2t): 3.2 cm2 Ao V2 VTI: 44.5 cm MVA(VTI): 1.5 cm2 LEVAR(I,D): 1.4 cm2 LEVAR(V,D): 1.4 cm2 LV V1 max: 101.1 cm/sec MR max kenneth: 474.9 cm/sec SV(LVOT): 63.1 ml LV V1 max P.1 mmHg MR max P.2 mmHg LV V1 mean P.4 mmHg LV V1 mean: 72.1 cm/sec LV V1 VTI: 20.9 cm PA V2 max: 80.4 cm/sec TR max kenneth: 258.6 cm/sec TR max P.8 mmHg ECHO/Echo Complete W/ Contrast Interpretation Summary The study was technically difficult. Contrast injection was performed. Left ventricular systolic function is normal. The estimated ejection fraction is 65 %. Septal motion consistent with IVCD. The left atrium is moderately enlarged. There is moderate mitral annular calcification. Extension of the mitral annular calcification onto the base of the posterior mi tral valve leaflet. Moderate mitral valve stenosis. Mild (1+) mitral valve insufficiency. Mild to moderate (1-2+) eccentric tricuspid valve insufficiency. Stable appearing bioprosthetic aortic valve apparatus. Right ventricular systolic pressure estimated to be 30 mmHg. Stage 2 diastolic dysfunction. ICD or pacer leads identified within the right atrium ICD or pacer leads identified within the right ventricle. Ordering Physician: Viraj Navarro Referring Physician: Kathy Guevara M.D. Performed By: Davey Shipley RCS
== END | disposition home or self-care (01) ==
LOC: CVS 08:45
PROVIDERS: PCP Internal Medicine; Referring Provider Internal Medicine Cardiovascular Disease; Visit Provider Internal Medicine Cardiovascular Disease
DX: I25.810 Atherosclerosis of coronary artery bypass graft(s) without angina pectoris (principal); I50.9 Heart failure, unspecified; Z95.3 Presence of xenogenic heart valve
CPT/HCPCS: 93306; Q9957; A4216; C8929

== ENCOUNTER → 2023-03-12 | Outpatient (CLI) | payer MEDICARE, BC, SELFPAY ==
--- NOTE | 2023-03-12 09:45 | CDU_ITS ---
Reason For Study: bruit Rt. Velocities/BP Lt. Velocities/BP Prox CCA 155.8/31.6 cm/sec. Prox CCA 65.2/15.7 cm/sec. Mid CCA 126.6/27.9 cm/sec. Mid CCA 53.1/16.8 cm/sec. Dist CCA 76.2/14.6 cm/sec. Dist CCA 58.6/17.9 cm/sec. Prox ICA 60.8/15.7 cm/sec. Prox ICA 396.0/150.0 cm/sec. Mid ICA 82.8/28.9 cm/sec. Mid ICA 91.2/33.5 cm/sec. Dist ICA 80.6/26.7 cm/sec. Dist ICA 45.8/18.8 cm/sec. Rt. ICA/CCA = .7. Lt. ICA/CCA = 7.5. Prox ECA 77.3/12.4 cm/sec. Prox ECA 109.7/24.9 cm/sec. Rt. Vert. 59.7/20.1 cm/sec. Lt. Vert. 22.0/8.8 cm/sec. Right Extracranial There is intimal thickening but no significant atherosclerotic plaque noted in the right common carotid artery. There is heterogeneous, irregular atherosclerotic plaque noted in the right internal carotid artery. There is intimal thickening but no significant atherosclerotic plaque noted in the right external carotid artery. Antegrade flow is noted in the right vertebral artery. Left Extracranial There is intimal thickening but no significant atherosclerotic plaque noted in the left common carotid artery. There is heterogeneous, irregular atherosclerotic plaque noted in the left internal carotid artery. There is heterogeneous, irregular atherosclerotic plaque noted in the left external carotid artery. Antegrade flow is noted in the left vertebral artery. Procedure Carotid Duplex [id number]. This is a Carotid Duplex examination using B-mode, color flow and specral Doppler. The exam was diagnostic. Prelim called to the . Exam performed in department. VL/Carotid Duplex Ultrasound Interpretation Summary Mild (<50%) stenosis right extracranial internal carotid. Severe (>70%) stenosis left extracranial internal carotid. Patent and antegrade vertebrals bilaterally. Ordering Physician: Zahra Linton Performed By: Nash Mckinley RVT
== END | disposition home or self-care (01) ==
LOC: CVS 09:44
PROVIDERS: PCP Internal Medicine; Referring Provider Physician Assistant Medical; Visit Provider Physician Assistant Medical
DX: R09.89 Other specified symptoms and signs involving the circulatory and respiratory systems (principal); I48.92 Unspecified atrial flutter; Z95.3 Presence of xenogenic heart valve; Z95.1 Presence of aortocoronary bypass graft
CPT/HCPCS: 93225; 93226; 93880

== ENCOUNTER → 2023-04-02 | Outpatient (CLI) | payer MEDICARE, BC, SELFPAY | END | disposition home or self-care (01) | LOC: SL 09:45 | PROVIDERS: PCP Internal Medicine; Visit Provider Internal Medicine | DX: G47.33 Obstructive sleep apnea (adult) (pediatric) (principal) ==

== ENCOUNTER → 2023-04-03 | Outpatient (CLI) | payer MEDICARE, BC, SELFPAY ==
--- NOTE | 2023-04-03 12:45 | ECHOCS_ITS ---
Reason For Study: SOB Procedure This was a 2D Doppler, Color Flow transthoracic echocardiogram. Contrast injection was performed. Exam performed in department. Left Ventricle Normal LV size. Moderate concentric left ventricular hypertrophy. Left ventricular systolic function is normal. The estimated ejection fraction is 70 %. Stage 2 diastolic dysfunction. No regional wall motion abnormalities noted. Right Ventricle Normal RV size. ICD or pacer leads identified within the right ventricle. Normal systolic function. Atria The left atrium is mildly enlarged. Normal right atrium. Mitral Valve There is moderate mitral annular calcification. Tricuspid Valve Normal tricuspid valve. Mild to moderate (1-2+) tricuspid valve insufficiency. Pulmonary artery systolic pressure is 42 mmHg. Aortic Valve Peak aortic valve gradient 29 mmHg. Mean aortic valve gradient 17 mmHg. Bioprosthetic aortic valve. Great Vessels Normal aortic root. The pulmonary artery is normal size. Normal inferior vena cava. Pericardium/Pleural No pericardial effusion. Medication Diluted definity 3.5ml given slow IV push to enhance endocardial definition. MMode/2D Measurements & Calculations LVIDd: 4.3 cm IVSd: 1.3 cm LVOT diam: 1.9 cm LVIDs: 2.7 cm LVPWd: 1.4 cm LVOT area: 2.7 cm2 RVDd: 3.6 cm FS: 35.9 % Ao root diam: 2.8 cm LAV(MOD-bp): 68.0 ml LVAd ap4: 24.8 cm2 LAV(MOD-bp) Indexed: 39.4 ml/m2 LVLd ap4: 7.1 cm LAV(MOD-sp2): 62.9 ml EDV(MOD-sp4): 69.7 ml LAV(MOD-sp4): 72.5 ml EDV(sp4-el): 73.6 ml LVAs ap4: 12.9 cm2 LVLs ap4: 5.7 cm ESV(MOD-sp4): 24.5 ml ESV(sp4-el): 24.9 ml EF(MOD-sp4): 64.9 % EF(sp4-el): 66.2 % SV(MOD-sp4): 45.2 ml SV(sp4-el): 48.7 ml LA A4 area: 24.1 cm2 LA dimension(2D): 6.1 cm RA A4 area: 15.8 cm2 Time Measurements MV dec time: 0.22 sec Doppler Measurements & Calculations MV E max kenneth: 178.3 cm/sec Lat Peak E' Kenneth: 6.3 cm/sec Med Peak E' Kenneth: 5.0 cm/sec MV A max kenneth: 101.3 cm/sec E/E' lat: 28.2 E/E' med: 35.6 MV E/A: 1.8 MV V2 max: 202.5 cm/sec Ao V2 max: 267.7 cm/sec MV max P.4 mmHg MV dec slope: 803.4 cm/sec2 Ao max P.8 mmHg MV V2 mean: 118.9 cm/sec Ao V2 mean: 197.2 cm/sec MV mean P.7 mmHg Ao mean P.2 mmHg MV V2 VTI: 55.0 cm Ao V2 VTI: 51.0 cm AV (velocity ratio): 0.52 MVA(VTI): 1.3 cm2 LEVAR(I,D): 1.4 cm2 LEVAR(V,D): 1.4 cm2 LV V1 max: 134.6 cm/sec SV(LVOT): 71.6 ml PA V2 max: 90.6 cm/sec LV V1 max P.3 mmHg LV V1 mean P.3 mmHg LV V1 mean: 99.3 cm/sec LV V1 VTI: 26.4 cm TR max kenneth: 304.9 cm/sec TR max P.2 mmHg ECHO/Echo Complete W/ Contrast Interpretation Summary Normal LV size. Moderate concentric left ventricular hypertrophy. Left ventricular systolic function is normal. The estimated ejection fraction is 70 %. Stage 2 diastolic dysfunction. Pulmonary artery systolic pressure is 42 mmHg. Bioprosthetic aortic valve. Ordering Physician: Zahra Linton Referring Physician: Kathy Guevara Performed By: Diane Becerra, NOY, RVT
== END | disposition home or self-care (01) ==
LOC: CVS 12:44
PROVIDERS: PCP Internal Medicine; Referring Provider Physician Assistant Medical; Visit Provider Physician Assistant Medical
DX: R06.02 Shortness of breath (principal)
CPT/HCPCS: 93306; Q9957; A4216; C8929

== ENCOUNTER → 2023-04-23 | Outpatient (CLI) | payer MEDICARE, BC, SELFPAY ==
--- NOTE | 2023-04-23 07:20 | CT_ITS ---
INDICATION: Carotid stenosis EXAMINATION: CT BRAIN WITHOUT CONTRAST, CTA NECK AND BRAIN WITH CONTRAST TECHNIQUE: Noncontrast axial images were obtained of the brain. Subsequently, routine carotid CT angiogram protocol was performed without and with IV contrast. In addition, images were obtained of the [place]. NASCET criteria using the distal ICAs for comparison were used for evaluation of stenoses. 3D reconstructions were reviewed. A radiation dose optimization technique was used for this scan. IV Contrast dosage and agent: 100 mL [id number] COMPARISON: 06/02/[address] FINDINGS: --CT BRAIN: BRAIN PARENCHYMA: No intra- or extra-axial hemorrhage. No evidence of acute infarct. No intracranial mass or mass effect. There is preservation of the watson/white matter interface. Posterior fossa structures are unremarkable. CSF SPACES: Appropriate for age. No hydrocephalus. Basal cisterns are patent. CALVARIUM, SKULL BASE, PARANASAL SINUSES AND MASTOID AIR CELLS: Clear. No discrete lytic or blastic abnormalities. Bilateral ocular lens replacements. ASPECTS Score for Acute Strokes: 10 --CTA NECK: AORTIC ARCH AND BRANCHES: Aberrant right subclavian artery. Common origin of both common carotid arteries. Left subclavian artery stent is widely patent. RIGHT CCA: No occlusion, significant stenosis or dissection. RIGHT ICA: No occlusion, significant stenosis or dissection. LEFT CCA: No occlusion, significant stenosis or dissection. LEFT ICA: Calcific plaque with greater than 70% stenosis of the carotid bulb. No occlusion, significant stenosis or dissection. RIGHT VERTEBRAL ARTERY: No occlusion, significant stenosis or dissection. LEFT VERTEBRAL ARTERY: Stenotic origin. No occlusion or dissection. NECK SOFT TISSUES: Unremarkable. --CTA HEAD: --Anterior circulation: ICAs: No significant stenosis at the intracranial/visualized segments. ACAs: No significant stenosis at the visualized segments. ACOM: Present. MCAs: No significant stenosis at the visualized segments. --Posterior circulation: PCOMs: Both present. traffic investigator: No significant stenosis at the visualized segments. BASILAR ARTERY: No significant stenosis. VERTEBRAL ARTERIES: No significant stenosis at the intradural/visualized segments. No evidence of intracranial aneurysm or vascular malformation. Bilateral pleural effusions. CT/CTA Head AND Neck W/ Contrast IMPRESSION: 1. Calcific plaque at the left carotid bulb causes greater than 70% stenosis. 2. Stenotic left ICA origin. 3. 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 No acute abnormal intracranial finding 5. No intracranial stenosis or aneurysm. 6. Bilateral pleural effusions. Electronically Signed: Viraj Warren MD at 21:51 EDT ,
[2023-04-23 07:51] LABS: CREATININE FINGERSTICK < 0.9 mg/dL (0.55-1.02); EGFR FINGERSTICK > 60.0000 mL/min (>60)
== END | disposition home or self-care (01) ==
LOC: CT 07:20
PROVIDERS: PCP Internal Medicine; Referring Provider Surgery Trauma Surgery; Visit Provider Surgery Trauma Surgery
DX: I65.29 Occlusion and stenosis of unspecified carotid artery (principal)
CPT/HCPCS: 70496; 70498; Q9967; A4216

== ENCOUNTER → 2023-05-15 | Outpatient (CLI) | payer MEDICARE, BC, SELFPAY ==
--- NOTE | 2023-05-15 10:06 | STRESSREP ---
Stress Test Report Pharmacologic myocardial perfusion stress test. 87-year-old lady for preop cardiac evaluation Resting EKG demonstrates atrial flutter with a rate of 71 bpm and a left bundle branch block with a rate of 71 bpm. Resting blood pressure is 120/72 mmHg. 0.4 mg of regadenoson was infused per usual protocol followed by rapid intravenous saline flush injection. Continuous EKG monitoring was performed. The maximum heart rate was 91 bpm which was 67% of max impacted heart rate the maximum workload was 1 metabolic equivalent. At rest there were no ST or T wave changes noted to suggest ischemia and at peak infusion nonspecific ST changes were noted which did not meet the criteria for ischemia. No clinical angina is noted. The final blood pressure was 124/60 mmHg. Myocardial perfusion protocol. 11.6 mCi of technetium 99m sestamibi was injected at rest. 0.4 mg of regadenoson was infused per usual protocol. At peak infusion 33.9 mCi of technetium 99m sestamibi was injected stress images were obtained stress and rest images were reconstructed and compared in the short axis vertical long and horizontal long axis. Gated images were also obtained. Perfusion SPECT analysis: Review of the stress images demonstrate normal uptake of tracer noted in all areas of the myocardium. The resting images similar demonstrated normal uptake of tracer noted in all areas of the myocardium. No areas of reversibility are noted to suggest ischemia and no previous infarct is noted. Gated SPECT analysis: The gated ejection fraction is 76%. Conclusion: Normal pharmacologic myocardial perfusion stress test. Preserved ejection fraction.
== END | disposition home or self-care (01) ==
LOC: CVS 06:35
PROVIDERS: PCP Internal Medicine; Referring Provider Physician Assistant Medical; Visit Provider Physician Assistant Medical
DX: Z01.810 Encounter for preprocedural cardiovascular examination (principal); I44.7 Left bundle-branch block, unspecified; Z95.1 Presence of aortocoronary bypass graft
CPT/HCPCS: 78452; 93017; A9500; A4216; J2785

== ENCOUNTER 2023-06-08 08:48 | Inpatient (IN) | payer MEDICARE, BC, SELFPAY ==
--- NOTE | 2023-05-27 08:44 | EKG12_ITS ---
Test Reason : PRE-OP Blood Pressure : / mmHG Vent. Rate : 072 BPM Atrial Rate : 234 BPM P-R Int : 000 ms QRS Dur : 136 ms QT Int : 436 ms P-R-T Axes : 236 -66 100 degrees QTc Int : 477 ms Ventricular-paced rhythm with premature ventricular or aberrantly conducted complexes Abnormal ECG Confirmed by DELL PARSONS, CHARMAINE ([id number]), film editor FATMATA VELÁZQUEZ ([id number]) on 05/28/2023 10:18:51 AM Referred By: HUGO Confirmed By:CHARMAINE SHARPE MD
[2023-05-27 10:01] LABS: Hematocrit 37.6 % (37-47); Mean Corp Hgb Conc 31.9 g/dL (32-36); Mean Corpuscular Hgb 26.5 pg (27.0-32.0); Platelet Count 189 K/mm3 (150-450); RBC Distribution Width CV 15.2 % (11.6-14.6); RBC Distribution Width SD 46.4 fl (35.1-43.9); Red Blood Count 4.53 M/mm3 (4.2-5.4); White Blood Count 6.9 K/mm3 (4.4-11.0)
[2023-05-27 10:41] LABS: Thyroid Stim Hormone (TSH) 0.59 uIU/mL (0.358-3.74)
[2023-05-27 10:44] LABS: Anion Gap 6 (5-15); BUN 18 mg/dL (7-18); BUN/Creat Ratio 16.7 RATIO (10-20); Calcium,Total 9.7 mg/dL (8.5-10.1); Chloride 109 mmol/L (98-107); Creatinine, Serum 1.08 mg/dL (0.55-1.02); EST Glomerular Filtration Rate 51 mL/min (>60); Est Glom Filt Rate - Afr Amer 62 mL/min (>60); Glucose 98 mg/dL (74-106); Potassium 3.9 mmol/L (3.5-5.1); Sodium Level 139 mmol/L (136-145)
[2023-06-08] VITALS (21 sets, daily range): BP systolic 86–161; BP diastolic 42–102; PULSE 69–114; RESP 12–20; TEMP 36.4–37.2; O2SAT 94–100; BMI 27.8; BMI 27.5
--- NOTE | 2023-06-08 | PLAQ_PTH ---
PATIENT: FAUSTO HENDERSON LOC: ICU U#:[id number] AGE/SX: 87/F ROOM: [place] [address] RE06/08/[address]: Dr. Brandt Levi MD : [id number] BED: 1 DIS: 06/09/2023 SPEC #: [id number] RECD: 06/08/23 14:32 STATUS: MICHAEL PEREA #: [id number] SWATI: 06/08/23 00:[address]: Brandt Levi DEPT: SURGICAL PATHOLOGY RECD BY: Malcolm Cardona ENTERED: 06/09/23 08:46 SP TYPE: PLAQUE OTHR DR: Dr. Kathy Guevara MD Tissues: PLAQUE Procedures: Decalcification bone/plaque Surgery Specimen Level III HEADER OPERATION: Left carotid endarterectomy PRE-OP DIAGNOSIS: Carotid stenosis, asysmptomatic TISSUE SUBMITTED: Left carotid plaque MICROSCOPIC DIAGNOSIS Left carotid plaque, endarterectomy: Atherosclerotic tissue with focal calcifications (plaque). SJ: 06/11/2023 GROSS DESCRIPTION Received in fixative is one container labeled with the patient's name and designated left carotid plaque. The specimen consists of a previously open piece of herrera indurated tissue measuring 1 cm in length and 0.8 cm in diameter. Also present in the container all multiple fragments of herrera indurated tissue measuring in aggregate 1 x 0.5 x 0.1 cm. The specimen cuts with gritty sensation. The entire specimen is submitted in one cassette after decalcification. /SJ: 06/09/23 TC:5 CPT:.89366, 16305
[2023-06-08] MEDS: Vancomycin IV 1,000 MG/200 ML BAG 200 MG IV (09:47)
[2023-06-08] MEDS: Lactated Ringers 1,000 ML 15 ML IV ×2 (09:47→13:31)
--- NOTE | 2023-06-08 10:51 | PCM.HP.STD ---
HPI - General General Date of Admission: 06/08/23 HPI Narrative FAUSTO HENDERSON, is a 87 F who presents with asymptomatic left carotid stenosis. She denies episodes of numbness/weakness/vision loss/speech difficulty. [facility] Medical History Ambulates with cane Anemia Aortic stenosis Arthritis Asthma Atherosclerosis of coronary artery bypass graft without angina pectoris Atrial flutter Back pain BiPAP (biphasic positive airway pressure) dependence Cardiology follow-up encounter Carotid bruit Difficulty swallowing Essential hypertension High cholesterol History of echocardiogram History of edema History of Holter monitoring History of stress test HLD (hyperlipidemia) Hypertension Hypothyroidism, iatrogenic Left bundle branch block Leg cramps Non-smoker Nonrheumatic aortic (valve) stenosis KRISHNA (obstructive sleep apnea) Palpitations Post-menopausal Pure hypercholesterolemia Restless legs Shortness of breath on exertion Sick sinus syndrome Thyroid disease Walker as ambulation aid Wears glasses Wears partial dentures Home Medications levothyroxine 75 mcg tablet 75 mcg PO DAILY THYROID 03/31/16 [History Last Taken 06/08/23] cyanocobalamin (vitamin B-12) 1,000 mcg capsule 500 mcg PO DAILY SUPPLEMENT 06/20/20 [History Last Taken 06/08/23] polyvinyl alcohol-povidone (PF) 1.4 %-0.6 % eye drops in a dropperette (Refresh Classic (PF)) 1 drp ophthalmic (eye) Q2H PRN Dry Eye(S) 03/20/21 [History Last Taken 06/08/23] vitamins A,C,E-wskj-obxiuq 4,296 mcg-226 mg-90 mg capsule (PreserVision AREDS) 1 cap PO BID EYE VITAMIN 03/20/21 [History Last Taken 06/07/23] nitroglycerin 0.4 mg sublingual tablet 0.4 mg sublingual Q5-15M PRN Chest Pain #25 tabs 09/25/22 [Rx Last Taken Unknown] apixaban 5 mg tablet (Eliquis) 5 mg PO BID BLOOD THINNER 05/26/23 [History Last Taken 06/07/23] atenolol 25 mg tablet 12.5 mg PO DAILY BP 05/26/23 [History Last Taken Unknown] atorvastatin 10 mg tablet 10 mg PO DAILY CHOLESTEROL 05/26/23 [History Last Taken Unknown] spironolactone 25 mg tablet 25 mg PO DAILY WATER PILL 05/26/23 [History Last Taken Unknown] hydralazine 25 mg tablet 25 mg PO TID BP #270 tabs 06/08/23 [Rx Last Taken 06/08/23] isosorbide mononitrate 60 mg tablet,extended release 24 hr 60 mg PO DAILY HEART #90 tabs 06/08/23 [Rx Last Taken 06/08/23] Allergy/AdvReac Type Severity Reaction Status Date / Time JESUS Inhibitors Allergy Severe Anaphylaxis Verified 06/08/23 09:24 amoxicillin Allergy Severe Anaphylaxis Verified 06/08/23 09:24 Penicillins Allergy Severe Anaphylaxis Verified 06/08/23 09:24 Family History Daughter CAD (coronary artery disease) Hx of CABG Daughter Hypertension Mother CAD (coronary artery disease) CHF (congestive heart failure) Alzheimer disease Brother CAD (coronary artery disease) Hx of CABG Hypertension Brother Hypertension Sister Hx of CABG CAD (coronary artery disease) Hypertension Sister CVA (cerebral vascular accident) Heart disease Father Myocardial infarction Surgical History H/O arthroplasty H/O foot surgery History of carpal tunnel surgery of left wrist History of five vessel coronary artery bypass (~04/25/05) Hx laparoscopic cholecystectomy Hx of left cataract extraction Hx of right cataract extraction Hx of total knee arthroplasty Presence of aortocoronary bypass graft Presence of cardiac pacemaker S/P meniscectomy Status post transcatheter aortic valve replacement (TAVR) using bioprosthesis (~07/02/16) 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, left (~2004) Social History Smoking Status: Never smoker alcohol intake: never substance use type: does not use caffeine: No what type of physical activity do you participate in: none seatbelt use: always do you feel safe at home: Yes ROS Constitutional Constitutional: Denies chills, fever(s), frequent falls, lethargy or weakness Eyes Eyes: Denies blind spots, change in vision or loss of vision ENT HEENT: Denies bleeding gums, hoarseness or sore throat Cardiovascular Cardiovascular: Denies abdominal pain, bluish discoloration of hand/feet, chest pain with activity, claudication, cold extremities, cyanosis, dyspnea on exertion, erythema on extremities, irregular heart rhythm, leg edema, leg ulcers, numbness in extremities or weakness in extremities Respiratory/Chest Respiratory/Chest: Denies cough, excessive phlegm production, shortness of breath at rest, shortness of breath with exertion or wheezing Gastrointestinal Gastrointestinal: Denies anorexia, change in stool character, constipation, diarrhea, melena or rectal bleeding Genitourinary Genitourinary: Denies dysuria or hematuria Musculoskeletal Musculoskeletal: Denies abnormal gait Integumentary Integumentary: Reports other Details: ; Denies erythema, non-healing lesions or wounds Neurologic Neurologic: Denies abnormal speech, focal weakness, headache(s), loss of vision, numbness, paresthesias or sensory deficit Hematologic/Lymphatic Hematologic/Lymphatic: Denies easy bleeding, easy bruising or lymphadenopathy Vital Signs Vital Signs Vital Signs: 06/08/23 09:26 06/08/23 09:26 Temperature 97.6 F L Temperature Source Temporal Pulse Rate 114 H Respiratory Rate 18 Respiratory Pattern Normal Blood Pressure 161/102 H Blood Pressure Mean 121 Blood Pressure Source Monitor Blood Pressure Position Semi-Fowlers Blood Pressure Location Left Arm Pulse Ox 97 Oxygen Delivery Method Room Air Weight Weight: 151 lb 14.376 oz Body Mass Index (BMI) 27.8 Physical Exam Const alert, oriented x3, no apparent distress and healthy appearing General Appearance: cooperative; Negative for combative or lethargic Orientation / Consciousness: awake Exam Limitations: no limitations HEENT Head and Scalp: normocephalic and atraumatic Eyes EOMs intact bilaterally General Eye: normal appearance of both eyes Neck full ROM, no lymphadenopathy and thyroid normal General: trachea midline; Negative for tenderness Thyroid: thyroid normal Resp normal respiratory effort and no use of accessory muscles Effort and Inspection: Negative for labored, stridor or audible wheezes Cardio Rate: tachycardic Back/Spine Cervical Spine: cervical ROM normal Extremity full ROM, normal capillary refill and no clubbing, cyanosis or edema Skin no rashes or lesions noted and no wounds Neuro oriented x3, CN's II-XII intact bilaterally, no focal motor deficits and no sensory deficits noted Psych thought process normal, cooperative, affect normal, speech normal and activity/motor behavior normal Results Lab / Micro Data 05/27/23 09:01 05/27/23 09:01 Assessment & Plan Assessment/Plan (1) Carotid stenosis, asymptomatic: PLAN: -left CEA
[2023-06-08] MEDS: Heparin Injection (Vial) 5,000 UNIT/ML VIAL 5000 UNIT (11:55)
[2023-06-08] MEDS: Bupivacaine Mpf 0.5% 30 ML VIAL (13:30)
--- NOTE | 2023-06-08 13:46 | PCM.OPRPT ---
Report of Operation Date of Procedure: 06/08/23 Pre-Operative Diagnosis: left carotid stenosis Post-Operative Diagnosis: same Surgery/Procedure Performed:: left carotid endarterectomy Surgeon: Brandt Levi Type of Anesthesia: General Drains: 15 Fr MOSHE Estimated Blood Loss (mL): 50 Description of Procedure: HPI: Patient is an 87-year-old female with asymptomatic left carotid artery stenosis. After preoperative optimization stratification patient is taken now for elective endarterectomy. Description of procedure: Upon obtaining informed consent and verification correct patient procedure site patient was taken to the operating room she was placed under general anesthesia. She was then positioned prepped and draped in usual sterile fashion a time was performed. Oblique incision made along the anterior border the sternocleidomastoid and Bovie electrocautery to dissect down through subcutaneous tissue. Self-retaining retractors) position further dissection carried on the platysma which was then divided. Self-retaining tractors were deep in the wound and dissection carried down to the sternocleidomastoid which was freed along its anterior border and retracted laterally. Sharp dissection and then used to dissect free the jugular vein along its medial border vein branches ligated with silk ties and divided. The jugular then retracted laterally exposing the carotid vessels and sharp dissection used to dissect free the proximal common carotid artery with care taken to identify and protect the vagus nerve. A right angle was then used to place a vessel loop and attention was turned to the internal carotid artery distally. Sharp section was dissect free the internal carotid artery beyond the palpable and visible plaque with care taken to identify protect the hypoglossal nerve. A right angle was then used to place a vessel loop and the patient was heparinized allowed to circulate for 5 minutes. Serial ACT's were then used to determine heparin agreed dosing. Finally sharp dissection was dissect free the external carotid artery and a right angle was placed vessel loop. This was then occluded first the internal followed by the common the external. Longitudinal arteriotomy was created with 11 blade extended Armstrong scissors from the common carotid artery onto the internal carotid artery on the plaque. A 12 [place] shunt was then placed first distally in the internal carotid artery allowed to backbleed and placed proximally in the common carotid artery. The shunt was interrogated Doppler found a patent low resistance signal. We then performed her endarterectomy with a freer elevator with satisfactory endpoint distally onto the internal carotid artery and eversion endarterectomy of the external carotid artery. The wound was then flushed heparinized saline to clear debris in the distal endpoint tacked with 7-0 Prolene interrupted sutures. A bovine pericardial patch was brought in the field and secured in position with a 6-0 Prolene in a running fashion. Prior to completing suture line the shunt was removed and the vessels backbled. After completing the suture line the internal carotid artery allowed to backbleed and the bifurcation then reoccluded its origin. Clamps were then removed from the external and the common carotid artery allowing 10 heartbeats of antegrade flow to flush into the external before reestablishing flow into the internal carotid artery. After releasing the Vesseloops satisfactory hemostasis was noted and the vessels were interrogated with Doppler. The internal carotid artery is patent with resistant signal in the external carotid artery was patent with normal signal. Patient was then reversed with protamine and the field inspected for hemostasis. A 15 [place] channel MOSHE was then placed via separate stab incision and the incision closed with 2-0 Vicryl, 3-0 Vicryl, 4 Monocryl and Dermabond for the skin. At the conclusion of case patient awake anesthesia moving all extremities to command cranial nerves intact. Patient was taken the recovery room with dissipate admission in the intensive care unit for hemodynamic and neurologic monitoring.
[2023-06-08] MEDS: Aspirin 325 MG Tablet PO (15:46)
[2023-06-08] MEDS: 0.45% Normal Saline 1,000 ML 50 ML IV (16:42)
[2023-06-08] MEDS: Acetaminophen 500 MG Tablet 1000 MG PO ×2 (16:43→21:04)
[2023-06-08 21:01] LABS: Bedside Glucose 156 mg/dL (74-106)
[2023-06-08] MEDS: Atorvastatin Calcium 10 MG Tablet PO (21:04)
[2023-06-09] VITALS (18 sets, daily range): BP systolic 79–123; BP diastolic 43–75; PULSE 70–104; RESP 13–20; TEMP 36.1–36.7; O2SAT 94–99; BMI 28.2
[2023-06-09] MEDS: Acetaminophen 500 MG Tablet 1000 MG PO (05:06)
[2023-06-09] MEDS: Levothyroxine 75 MCG Tablet PO (05:06)
[2023-06-09 05:20] LABS: Absolute Lymphocyte Count 0.82 X10^3/uL (0.83-4.51); Absolute Neutrophil Count 5.2 X10^3/uL (2.0-7.7); Basophil# 0.01 X10^3/uL; Basophil% 0.2 % (0-1); Hematocrit 28.8 % (37-47); Hemoglobin 9.1 g/dL (12.0-15.0); Lymphocyte # 0.82 X10^3/ul (0.83-4.51); Lymphocyte % 12.8 % (19-41); Mean Corp Hgb Conc 31.6 g/dL (32-36); Mean Corpuscular Hgb 25.6 pg (27.0-32.0); Mean Corpuscular Volume 81.1 fL (81-99); Monocyte# 0.35 X10^3/uL; Monocyte% 5.5 % (0-10); NRBC Flagged by Analyzer 0 % (0-5); Neutrophil # 5.22 X10^3/uL (2.7-7.7); Neutrophil % 81.2 % (47-70); Platelet Count 138 K/mm3 (150-450); RBC Distribution Width CV 14.6 % (11.6-14.6); RBC Distribution Width SD 43.4 fl (35.1-43.9); Red Blood Count 3.55 M/mm3 (4.2-5.4); White Blood Count 6.4 K/mm3 (4.4-11.0)
[2023-06-09 08:10] LABS: ACT Activated Clotting Time 149 sec (74-137)
[2023-06-09 08:11] LABS: ACT Activated Clotting Time 293 sec (74-137)
[2023-06-09 08:12] LABS: ACT Activated Clotting Time 257 sec (74-137)
[2023-06-09] MEDS: Multivitamin (Healthy Eyes) Capsule 1 CAP PO (08:31)
[2023-06-09] MEDS: Aspirin E.C. 325 MG Tablet PO (08:31)
[2023-06-09] MEDS: Cyanocobalamin 500 MCG Tablet PO (08:31)
[2023-06-09] MEDS: Enoxaparin 40 MG/0.4 ML Syringe SC (08:32)
[2023-06-09] MEDS: Atenolol 25 MG Tablet 12.5 MG PO (08:32)
--- NOTE | 2023-06-09 08:37 | PCM.PN.SRG ---
Subjective Subjective Patient is doing well this morning. She has been hypotensive following surgery, received fluid bolus and pressures have been improved since then. BP meds have been held. She has a mild headache near the base of her neck but otherwise no complaints. She has not been UTC. She denies dizziness/lightheadedness, vision changes, focal motor weakness, numbness/tingling, dysarthria. She reports pain at surgical site is well-controlled. Objective Data Objective Data Vital Signs: Vital Signs Temp Pulse Resp BP Pulse Ox O2 Del Method O2 Flow Rate 97.7 F L 104 H 14 110/75 97 Room Air 2 06/09/23 06:00 06/09/23 07:00 06/09/23 07:00 06/09/23 07:00 06/09/23 07:00 06/09/23 07:00 06/08/23 23:00 Oxygen Flow Rate (L/min) 2 Oxygen Delivery Method Room Air Weight: 159 lb 6.307 oz Body Mass Index (BMI) 28.2 Intake & Output: Intake and Output for Last 24 Hours 06/07/23 06/08/23 06/09/23 23:59 23:59 23:59 Intake Total 1880 / 1880 267.5 / 267.5 Output Total 570 / 570 Balance 1860 / 1860 -302.5 / -302.5 Lab / Micro Data 06/09/23 05:15 05/27/23 09:01 Labs: Laboratory Results - last 24 hr 06/08/23 11:08: Activated Clotting Time 149 H 06/08/23 12:25: Activated Clotting Time 293 H 06/08/23 13:12: Activated Clotting Time 257 H 06/08/23 20:43: POC Glucose 156 H 06/09/23 05:15: WBC 6.4, RBC 3.55 L, Hgb 9.1 L, Hct 28.8 L, MCV 81.1, MCH 25.6 L, MCHC 31.6 L, RDW Std Deviation 43.4, RDW Coeff of Benjamín 14.6, Plt Count 138 L, MPV 10.0, Immature Gran % (Auto) 0.300, Neut % (Auto) 81.2 H, Lymph % (Auto) 12.8 L, [place] % (Auto) 5.5, Eos % (Auto) 0.0, Baso % (Auto) 0.2, Absolute Neuts (auto) 5.2, Absolute Lymphs (auto) 0.82 L, Nucleated RBC % 0 Physical Exam Const alert, oriented x3 and no apparent distress General Appearance: cooperative and comfortable HEENT normocephalic, head/scalp atraumatic, hearing grossly normal bilaterally, external ears normal and external nose normal Eyes EOMs intact bilaterally General Eye: normal appearance of both eyes Neck Neck Narrative: Neck incision site is C/D/I, mild ecchymosis, no significant swelling, erythema, drainage. MOSHE drain has small amount of serosanguineous fluid. Resp normal respiratory effort, no retractions and no use of accessory muscles Effort and Inspection: able to speak in complete sentences; Negative for labored, stridor or audible wheezes Cardio regular rate and regular rhythm Peripheral Pulses: brachial pulses present and radial pulses present Neuro oriented x3, CN's II-XII intact bilaterally, moves all extremities, no focal motor deficits and no sensory deficits noted Speech: speech normal Assessment & Plan Assessment/Plan (1) Stenosis of left carotid artery greater than 50%: PLAN: She is s/p left carotid endarterectomy on 06/08/23. BPs are improved following fluid bolus. Will restart atenolol but continue to hold other BP medications. MOSHE drain was removed. Incision with satisfactory appearance. Progress to regular diet for breakfast. UTC/ambulate later this morning. Anticipate discharge this afternoon.
[2023-06-09] MEDS: 0.45% Normal Saline 1,000 ML 999 ML IV (10:50)
--- NOTE | 2023-06-09 13:27 | DS.PCM_ITS ---
Providers Date of Admission: 06/08/23 Primary Care Physician: Dr. Kathy Guevara MD Reason For Visit: LEFT CAROTID ENDARTERECTOMY Diagnosis Discharge Diagnosis (1) Stenosis of left carotid artery greater than 50%: Status: Acute Code(s): I65.22 - Occlusion and stenosis of left carotid artery Plan: She is s/p left carotid endarterectomy on 06/08/23. BPs are improved following fluid bolus. Will restart atenolol but continue to hold other BP medications. MOSHE drain was removed. Incision with satisfactory appearance. Progress to regular diet for breakfast. UTC/ambulate later this morning. Anticipate discharge this afternoon. Medications at Discharge Home Medications levothyroxine 75 mcg tablet 75 mcg PO DAILY THYROID 03/31/16 cyanocobalamin (vitamin B-12) 1,000 mcg capsule 500 mcg PO DAILY SUPPLEMENT 06/20/20 polyvinyl alcohol-povidone (PF) 1.4 %-0.6 % eye drops in a dropperette (Refresh Classic (PF)) 1 drp ophthalmic (eye) Q2H PRN Dry Eye(S) 03/20/21 vitamins A,C,V-yscn-khwhqc 4,296 mcg-226 mg-90 mg capsule (PreserVision AREDS) 1 cap PO BID EYE VITAMIN 03/20/21 nitroglycerin 0.4 mg sublingual tablet 0.4 mg sublingual Q5-15M PRN Chest Pain #25 tabs 09/25/22 apixaban 5 mg tablet (Eliquis) 5 mg PO BID BLOOD THINNER 05/26/23 atenolol 25 mg tablet 12.5 mg PO DAILY BP 05/26/23 atorvastatin 10 mg tablet 10 mg PO DAILY CHOLESTEROL 05/26/23 spironolactone 25 mg tablet 25 mg PO DAILY WATER PILL 05/26/23 hydralazine 25 mg tablet 25 mg PO TID BP #270 tabs 06/08/23 isosorbide mononitrate 60 mg tablet,extended release 24 hr 60 mg PO DAILY HEART #90 tabs 06/08/23 oxycodone 5 mg tablet 5 mg PO Q8H PRN PRN Pain Score 4-10 3 days #9 tabs 06/09/23 Hospital Course Operations - (left carotid endarterectomy) Summary of Care Provided Hospital Course: Patient underwent left carotid endarterectomy on 06/08/23 after which she was routinely admitted to the ICU for hemodynamic and neurologic monitoring. Patient has been mildly hypotensive following surgery, was responsive to fluids and she has been without dizziness/lightheadedness with ambulation. She has not had any focal motor weakness, sensory disturbance, vision changes, dysarthria, facial drooping, CP, SOB, FRASER, N/V, F/C. She has remained neurologically stable throughout her admission. Following surgery she has been tolerating full diet, pain has been well controlled, she is ambulating without difficulty with assistance of a walker. She is medically stable for discharge home. Outpatient f/u with our office will be scheduled. Physical Exam Const alert, oriented x3 and no apparent distress General Appearance: cooperative and comfortable HEENT normocephalic, head/scalp atraumatic, hearing grossly normal bilaterally, external ears normal and external nose normal Eyes EOMs intact bilaterally General Eye: normal appearance of both eyes Neck Neck Narrative: Neck incision site is C/D/I, mild ecchymosis, no significant swelling, erythema, drainage. Resp normal respiratory effort, no retractions and no use of accessory muscles Effort and Inspection: able to speak in complete sentences; Negative for labored, stridor or audible wheezes Cardio regular rate and regular rhythm Peripheral Pulses: brachial pulses present and radial pulses present Neuro oriented x3, CN's II-XII intact bilaterally, moves all extremities, no focal motor deficits and no sensory deficits noted Speech: speech normal Weight / BMI Weight Weight: 159 lb 6.307 oz Body Mass Index (BMI) 28.2 ABG / Lab / Microbiology Data 06/09/23 05:15 05/27/23 09:01 Laboratory: Laboratory Results - last 24 hr 06/08/23 11:08: Activated Clotting Time 149 H 06/08/23 12:25: Activated Clotting Time 293 H 06/08/23 13:12: Activated Clotting Time 257 H 06/08/23 20:43: POC Glucose 156 H 06/09/23 05:15: WBC 6.4, RBC 3.55 L, Hgb 9.1 L, Hct 28.8 L, MCV 81.1, MCH 25.6 L , MCHC 31.6 L, RDW Std Deviation 43.4, RDW Coeff of Benjamín 14.6, Plt Count 138 L, MPV 10.0, Immature Gran % (Auto) 0.300, Neut % (Auto) 81.2 H, Lymph % (Auto) 12.8 L, [place] % (Auto) 5.5, Eos % (Auto) 0.0, Baso % (Auto) 0.2, Absolute Neuts (auto) 5.2, Absolute Lymphs (auto) 0.82 L, Nucleated RBC % 0 D/C Instructions Discharge Diet: No restrictions May shower in (days): 1 Weight Bearing Status: Weight bearing as tolerated Lifting Restricted to (Lbs): 20 Lifting Restrictions: Do not lift greater than 20 pounds for 3 weeks Call your doctor if your incision/area has: Sudden Increased Bleeding, Increased Pain/ Swelling and Foul Smelling Discharge Call your doctor if you observe: Fever of 101 or Higher and Uncontrolled pain Additional Dressing/Incision Instructions: There is a small bandage at the base of your neck. This is covering the site where the surgical drain was removed. You may remove this bandage tomorrow. If there is still some drainage, you may re-cover it with a new bandage, otherwise you may leave in uncovered. The rest of your incision is covered by surgical glue which will protect it. This surgical glue will flake/peel off on its own over the next few weeks, please do not pick at it. Additional Instructions: You may shower tomorrow. It is okay for soap and water to rinse over the incision. Do not submerge the incision site such as with a bath, swimming, etc for [address] for 1 week. After 1 week, you may drive as long as you feel you can move your neck/head well enough to check your blindspots and drive safely. Prior to the procedure you held your Eliquis (apixaban). Please restart this medication TOMORROW (06/10/23) evening. Your blood pressure was running low following the surgery so you will need to hold some of your medications once at home. Please HOLD the following medications: hydralazine, isosorbide mononitrate (imdur), spironolactone. Please CONTINUE the following medications: atenolol, atorvastatin, levothyroxine. Please monitor your blood pressures at home. Check it 1-2 times daily. If the top number begins to be 130 or higher, then please restart your other blood pressure medications. Please contact the office ([phone]) with any questions or concerns. Please follow-up in our office in 2-4 weeks or sooner as needed. Our office will call to schedule your follow-up appointment. Please Follow Up With: Brandt Levi MD When: 2-4 weeks Meaningful Use Info Meaningful Use Diagnoses (Choose all that apply): None applicable Discharge Plan Admission Admit Date/Time: 06/08/23 08:48 Primary Reason for Your Visit: Left carotid endarterectomy Attending Provider: Brandt Levi Primary Care Provider: Kathy Guevara Discharge Orders/Prescriptions Prescriptions: New oxycodone 5 mg Tablet 5 mg PO Q8H PRN PRN (Reason: Pain Score 4-10) 3 Days Qty: 9 0RF Continued cyanocobalamin (vitamin B-12) 1,000 mcg capsule 500 mcg PO DAILY PreserVision AREDS [id number],320-226-200 [id number]-yk-[id number] capsule 1 cap PO BID Refresh Classic (PF) 1.4-0.6 % dropperette 1 drp OPHTHALMIC Q2H PRN (Reason: Dry Eye(S)) nitroglycerin 0.4 mg tablet, sublingual 0.4 mg SUBLINGUAL Q5-15M PRN (Reason: Chest Pain) Qty: 25 3RF levothyroxine 75 MCG tablet 75 mcg PO DAILY atorvastatin 10 mg tablet 10 mg PO DAILY atenolol 25 mg tablet 12.5 mg PO DAILY Held spironolactone 25 mg tablet 25 mg PO DAILY Hold Instructions: Resume on 06/15/23. Please hold this medication until your systolic blood pressure (top number) is greater than or equal to 130 mmHg. Please check your BP at home 1-2 times a day as directed. Call the office with questions/concerns. Eliquis 5 mg tablet 5 mg PO BID Hold Instructions: Resume on 06/10/23. Please restart your Eliquis on 06/10/23 evening then continue to take as directed. hydralazine 25 mg tablet 25 mg PO TID Qty: 270 3RF Hold Instructions: Resume on 06/15/23. Please hold this medication until your systolic blood pressure (top number) is greater than or equal to 130 mmHg. Please check your BP at home 1-2 times a day as directed. Call the office with questions/concerns. isosorbide mononitrate 60 mg tablet extended release 24 hr 60 mg PO DAILY Qty: 90 3RF Hold Instructions: Resume on 06/15/23. Please hold this medication until your systolic blood pressure (top number) is greater than or equal to 130 mmHg. Please check your BP at home 1-2 times a day as directed. Call the office with questions/concerns. Referrals / Follow Up: Kathy Guevara MD [Primary Care Provider] - Disposition Disposition (needs filled in before D/C Order can be placed): Home, Self Care
--- NOTE | 2023-06-09 15:30 | CASEMGMT ---
RN DAVIE CHEMIST PHARMACEUTICAL CM to room to meet with patient for initial transition planning/care coordination assessment. RN DAVIE introduced self and role at [facility].? Pt voices understanding and consents to assessment at this time.? Pt sitting up in chair in room in no distress at this time.?Dtr's, Giovanna and Мария, @ bedside and pt agreeable to them being present during assessment. Pt is A/O at this time and answers all questions appropriately.?? Care providers, pharmacy, and demographics verified/updated at this time. PCP: Dr Guevara Specialists: Dr Levi-vascular surgeon, Dr Ruvalcaba-cardiology Preferred Pharmacy: [facility] Retail Insurance: [employer], [employer] Prescription Benefit:?Yes Living Will/HPOA:?Pt has done both LW and HCPOA, who is her dtr, Мария. LNOK: dtr/POМария Gonzalez. DtrGiovanna. Living Arrangements: Lives w/dtr, Giovanna, in 2-story home w/1 step to enter. FFSU. Indep w/ADL's. DtrМария, assists w/appts. Transportation: Pt states drives self and states no transportation concerns at this time.? DME: States has the following DME:?shower chair, CPAP, and walker. Pt and dtr's state pt's walker she has is too short and they are not sure if it is adjustable or not. They would like to get a new one for pt. Pt states she did get the walker a couple yrs ago through her insurance. They were made aware insurance typically will not cover cost of another walker for 5 yrs. They stated will check to see if it is adjustable once they return home. They were provided w/a script for a new walker in case it is not adjustable and will look into seeing if insurance would cover for one if needed. Pt and dtr's state no need for further DME at this time.? HHC/SNF: No hx of either. No needs identified. Pt wishes to return home she and family and state no concerns with her going home. PLAN: ?Home w/family support and discharge plans in place. Linda ADEN RN, CM
== END 2023-06-09 16:10 | disposition home or self-care (01) | DRG 39 ==
LOC: ACINP 08:49 → ICU 15:56
PROVIDERS: Anesthesiology; Admitting Provider Surgery Trauma Surgery; PCP Internal Medicine; Referring Provider Surgery Trauma Surgery; Visit Provider Surgery Trauma Surgery
PROC: 03CN0ZZ Extirpation of Matter from Left External Carotid Artery, Open Approach (ICD-10-PCS; CPT 35301; principal; 2023-06-08 10:40)
DX: I65.22 Occlusion and stenosis of left carotid artery (principal); I49.5 Sick sinus syndrome; E03.2 Hypothyroidism due to medicaments and other exogenous substances; I25.10 Atherosclerotic heart disease of native coronary artery without angina pectoris; I10 Essential (primary) hypertension; E78.00 Pure hypercholesterolemia, unspecified; Z95.0 Presence of cardiac pacemaker; Z95.1 Presence of aortocoronary bypass graft; Z79.01 Long term (current) use of anticoagulants; Z79.899 Other long term (current) drug therapy; Z82.3 Family history of stroke
CPT/HCPCS: 36415; 80048; 82962; 84443; 85025; 85027; 85347; 86850; 86900; 86901; 88304; 88311; 93005; 94668; 94762; 97802; 99252; A4648; J7040; J7120; G0463; J2405

== ENCOUNTER → 2023-07-08 | Outpatient (CLI) | payer MEDICARE, BC, SELFPAY ==
--- NOTE | 2023-07-08 08:50 | RAD_ITS ---
STUDY: X-RAY - ESOPHAGUS (BARIUM SWALLOW) WITH FLUOROSCOPY REASON FOR EXAM: Female, 87 years old. OTHER DYSPHAGIA TECHNIQUE: 20 view(s) of the esophagus were obtained following swallowing of barium. FLUOROSCOPY TIME (if supplied): (66 seconds) minutes/seconds. 20.25 mGy COMPARISON: None. FINDINGS: There is no demonstrated esophageal foreign body. There is no demonstrated stricture or mucosal abnormality. Decreased peristaltic activity with a mild dilatation of the esophagus. There is a moderate-sized hiatal hernia with gastroesophageal reflux. The patient ingested a 12 mm tablet at bedtime. The tablet is trapped at the gastroesophageal junction. There is atherosclerotic calcification of the aortic arch with tortuosity of the descending aorta. Normal visualized pulmonary parenchyma. There are diffuse degenerative changes of the visualized thoracic spine. RAD/Esophagus Dual Contrast IMPRESSION: Decreased peristaltic activity throughout the esophagus. Moderate sized hiatal hernia with gastroesophageal reflux. The ingested 12 mm tablet at bedtime is at the gastroesophageal junction. Electronically Signed: Star Jolly MD at 15:13 EDT ,
== END | disposition home or self-care (01) ==
LOC: RAD 08:42
PROVIDERS: PCP Internal Medicine
DX: R13.19 Other dysphagia (principal)
CPT/HCPCS: 74221

== ENCOUNTER → 2023-12-09 | Outpatient (CLI) | payer MEDICARE, BC, SELFPAY ==
--- NOTE | 2023-12-09 09:49 | CDU_ITS ---
Reason For Study: S/P Recent Lt CEA Rt. Velocities/BP Lt. Velocities/BP Prox CCA 67.4/12.2 cm/sec. Prox CCA 92.9/13.8 cm/sec. Mid CCA 134.5/20.5 cm/sec. Mid CCA 99.4/18.2 cm/sec. Dist CCA 97.9/17.5 cm/sec. Dist CCA 103.8/24.8 cm/sec. Prox ICA 112.5/19.4 cm/sec. Prox ICA 112.6/22.6 cm/sec. Mid ICA 96.1/24.8 cm/sec. Mid ICA 98.3/22.2 cm/sec. Dist ICA 64.7/14.2 cm/sec. Dist ICA 81.7/20.4 cm/sec. Rt. ICA/CCA = 0.8. Lt. ICA/CCA = 1.1. Prox ECA 94.9/0.0 cm/sec. Prox ECA 209.8/15.8 cm/sec. Rt. Vert. 44.3/12.2 cm/sec. Lt. Vert. 19.4/5.6 cm/sec. Right Extracranial There is intimal thickening but no significant atherosclerotic plaque noted in the right common carotid artery. The right common carotid artery is tortuous. There is heterogeneous, irregular atherosclerotic plaque noted in the right internal carotid artery. There is intimal thickening but no significant atherosclerotic plaque noted in the right external carotid artery. Antegrade flow is noted in the right vertebral artery. Left Extracranial There is homogeneous, smooth atherosclerotic plaque noted in the left common carotid artery. There is heterogeneous, smooth atherosclerotic plaque noted in the left internal carotid artery. S/P Recent CEA. There is homogeneous, smooth atherosclerotic plaque noted in the left external carotid artery. Antegrade flow is noted in the left vertebral artery. Procedure Carotid Duplex [id number]. This is a Carotid Duplex examination using B-mode, color flow and specral Doppler. The exam was diagnostic. Exam performed in department. VL/Carotid Duplex Ultrasound Interpretation Summary Mild (<50%) stenosis right extracranial internal carotid. Mild (<50%) stenosis left extracranial internal carotid. Patent and antegrade vertebrals bilaterally. Ordering Physician: Lashaun Spence Referring Physician: Kathy Guevara Performed By: Reginaldo Chambers RVT
== END | disposition home or self-care (01) ==
PROVIDERS: PCP Internal Medicine; Referring Provider Physician Assistant; Visit Provider Physician Assistant
DX: Z48.812 Encounter for surgical aftercare following surgery on the circulatory system (principal); I65.23 Occlusion and stenosis of bilateral carotid arteries
CPT/HCPCS: 93880

== ENCOUNTER → 2024-02-15 | Outpatient (CLI) | payer MEDICARE, BC, SELFPAY ==
[2024-02-15 11:41] LABS: EXAGEN MAILED SPECIMEN
[2024-02-15 12:21] LABS: Erythrocyte Sedimentation Rate 26 mm/hr (0-30)
[2024-02-15 12:23] LABS: Absolute Neutrophil Count 3.3 X10^3/uL (2.0-7.7); Basophil# 0.04 X10^3/uL; Basophil% 0.8 % (0-1); Hematocrit 36.8 % (37-47); Hemoglobin 11.5 g/dL (12.0-15.0); Lymphocyte % 25.7 % (19-41); Mean Corp Hgb Conc 31.3 g/dL (32-36); Mean Corpuscular Hgb 27.1 pg (27.0-32.0); Mean Corpuscular Volume 86.6 fL (81-99); Mean Platelet Vol. 10.2 fl (6.2-12.0); Monocyte# 0.32 X10^3/uL; Monocyte% 6.3 % (0-10); NRBC Flagged by Analyzer 0 % (0-5); Neutrophil # 3.28 X10^3/uL (2.7-7.7); Neutrophil % 64.8 % (47-70); Platelet Count 193 K/mm3 (150-450); RBC Distribution Width CV 13.7 % (11.6-14.6); Red Blood Count 4.25 M/mm3 (4.2-5.4); White Blood Count 5.1 K/mm3 (4.4-11.0)
[2024-02-15 13:06] LABS: ALB/GLOB Ratio 1.1 RATIO (0.9-2.4); AST(SGOT) 35 U/L (15-37); Alanine Aminotransfer ALT/SGPT 28 U/L (13-56); Albumin, Serum 4.3 g/dL (3.2-5.0); Alkaline Phosphatase 102 U/L (45-117); Anion Gap 7 (5-15); BUN 17 mg/dL (7-18); CRP < 2.90 mg/L (0.0-3.0); Calcium,Total 9.7 mg/dL (8.5-10.1); Chloride 106 mmol/L (98-107); Creatinine, Serum 1.13 mg/dL (0.55-1.02); EST Glomerular Filtration Rate 49 mL/min (>60); Est Glom Filt Rate - Afr Amer 59 mL/min (>60); Glucose 108 mg/dL (74-106); Potassium 4.5 mmol/L (3.5-5.1); Protein, Total 8.3 g/dL (6.4-8.2); Sodium Level 138 mmol/L (136-145)
[2024-02-15 13:25] LABS: Hepatitis B Surface Antibody Non-Reactive; Hepatitis B Surface Antigen Non-Reactive (Nonreactive); Hepatitis C Antibody Non-Reactive (Nonreactive)
[2024-02-15 13:32] LABS: Protein, Urine (Random) 10.2 mg/dL (<11.9); Protein:Creat Ratio 85 mg/g CRE (0-200)
[2024-02-16 09:50] LABS: Color, Urine Yellow (Yellow); Glucose, Dipstick Normal (Normal); Ketone-Dipstick Negative (Negative); Leukocyte Esterase-Dipstick Negative /ul (Negative); Nitrite-Dipstick Negative (Negative); Occult Blood-Urine Negative /ul (Negative); Protein-Dipstick Negative (Negative); Specific Gravity, Urine 1.015 (1.002-1.030); Urine Bilirubin Dipstick Negative (Negative); Urine Clarity Clear (Clear); Urine Urobilinogen Normal (Normal)
== END | disposition home or self-care (01) ==
LOC: MFPLAB 10:26
PROVIDERS: PCP Internal Medicine; Visit Provider Internal Medicine Rheumatology
DX: M06.4 Inflammatory polyarthropathy (principal); M19.041 Primary osteoarthritis, right hand; M19.042 Primary osteoarthritis, left hand; R76.8 Other specified abnormal immunological findings in serum
CPT/HCPCS: 36415; 80053; 81002; 82570; 84156; 85025; 85652; 86140; 86706; 86803; 87340

== ENCOUNTER → 2024-03-03 | Outpatient (CLI) | payer MEDICARE, BC, SELFPAY | END | disposition home or self-care (01) | LOC: SL 09:19 | PROVIDERS: PCP Internal Medicine; Visit Provider Internal Medicine | DX: R69 Illness, unspecified (principal) ==

== ENCOUNTER → 2024-04-26 | Outpatient (CLI) | payer MEDICARE, BC, SELFPAY ==
[2024-04-26 15:37] LABS: Absolute Neutrophil Count 8.8 X10^3/uL (2.0-7.7); Basophil# 0.01 X10^3/uL; Basophil% 0.1 % (0-1); Eosinophil# 0.01 X10^3/uL; Eosinophils% 0.1 % (0-5); Hematocrit 33.8 % (37-47); Hemoglobin 10.7 g/dL (12.0-15.0); Lymphocyte % 9.9 % (19-41); Mean Corp Hgb Conc 31.7 g/dL (32-36); Mean Corpuscular Hgb 26.8 pg (27.0-32.0); Mean Corpuscular Volume 84.7 fL (81-99); Mean Platelet Vol. 10.1 fl (6.2-12.0); Monocyte# 0.25 X10^3/uL; Monocyte% 2.5 % (0-10); NRBC Flagged by Analyzer 0 % (0-5); Neutrophil # 8.76 X10^3/uL (2.7-7.7); Neutrophil % 86.8 % (47-70); Platelet Count 208 K/mm3 (150-450); RBC Distribution Width CV 14.1 % (11.6-14.6); RBC Distribution Width SD 43.8 fl (35.1-43.9); Red Blood Count 3.99 M/mm3 (4.2-5.4); White Blood Count 10.1 K/mm3 (4.4-11.0)
[2024-04-26 16:03] LABS: AST(SGOT) 29 U/L (15-37); Alanine Aminotransfer ALT/SGPT 36 U/L (13-56); Albumin, Serum 3.6 g/dL (3.2-5.0); Alkaline Phosphatase 81 U/L (45-117); Anion Gap 7 (5-15); BUN 25 mg/dL (7-18); BUN/Creat Ratio 24.3 RATIO (10-20); Calcium,Total 9.3 mg/dL (8.5-10.1); Chloride 109 mmol/L (98-107); Creatinine, Serum 1.03 mg/dL (0.55-1.02); EST Glomerular Filtration Rate 54 mL/min (>60); Est Glom Filt Rate - Afr Amer 65 mL/min (>60); Globulin 3.7 g/dL (2.2-4.2); Glucose 112 mg/dL (74-106); Potassium 4.3 mmol/L (3.5-5.1); Protein, Total 7.3 g/dL (6.4-8.2); Sodium Level 138 mmol/L (136-145); Thyroid Stim Hormone (TSH) 0.53 uIU/mL (0.358-3.74)
== END | disposition home or self-care (01) ==
LOC: LAB.FUTURE 12:02 → MFPLAB 04-27 04:17
PROVIDERS: PCP Internal Medicine; Visit Provider Clinical Nurse Specialist
DX: E03.9 Hypothyroidism, unspecified (principal); M06.4 Inflammatory polyarthropathy; M32.9 Systemic lupus erythematosus, unspecified; M19.041 Primary osteoarthritis, right hand; M48.061 Spinal stenosis, lumbar region without neurogenic claudication; M17.0 Bilateral primary osteoarthritis of knee
CPT/HCPCS: 36415; 80053; 84443; 85025

== ENCOUNTER → 2024-06-13 | Outpatient (CLI) | payer MEDICARE, BC, SELFPAY ==
--- NOTE | 2024-06-13 08:39 | CDU_ITS ---
Reason For Study: HX Lt CEA Rt. Velocities/BP Lt. Velocities/BP Prox CCA 56.0/16.7 cm/sec. Prox CCA 87.5/20.4 cm/sec. Mid CCA 108.9/16.7 cm/sec. Mid CCA 83.1/21.5 cm/sec. Dist CCA 103.9/20.4 cm/sec. Dist CCA 103.4/30.3 cm/sec. Prox ICA 91.6/27.8 cm/sec. Prox ICA 95.1/24.9 cm/sec. Mid ICA 76.9/21.6 cm/sec. Mid ICA 112.5/32.1 cm/sec. Dist ICA 89.1/31.4 cm/sec. Dist ICA 96.5/29.6 cm/sec. Rt. ICA/CCA = 0.8. Lt. ICA/CCA = 1.4. Prox ECA 104.0/4.0 cm/sec. Prox ECA 141.8/23.3 cm/sec. Rt. Vert. 46.8/17.1 cm/sec. Lt. Vert. 20.0/8.4 cm/sec. Right Extracranial There is intimal thickening but no significant atherosclerotic plaque noted in the right common carotid artery. The tortuous nature of the right common carotid artery may result in flow velocities overestimating the degree of stenosis. There is heterogeneous, irregular atherosclerotic plaque noted in the right internal carotid artery. There is intimal thickening but no significant atherosclerotic plaque noted in the right external carotid artery. Antegrade flow is noted in the right vertebral artery. Left Extracranial There is homogeneous, smooth atherosclerotic plaque noted in the left common carotid artery. The left common carotid artery is tortuous. There is heterogeneous, smooth atherosclerotic plaque noted in the left internal carotid artery. HX CEA. There is homogeneous, smooth atherosclerotic plaque noted in the left external carotid artery. Antegrade flow is noted in the left vertebral artery. Procedure Carotid Duplex [id number]. This is a Carotid Duplex examination using B-mode, color flow and specral Doppler. The exam was diagnostic. Exam performed in department. VL/Carotid Duplex Ultrasound Interpretation Summary Mild (<50%) stenosis right extracranial internal carotid. Mild (<50%) stenosis left extracranial internal carotid. Patent and antegrade vertebrals bilaterally. Ordering Physician: Lashaun Spence Referring Physician: Kathy Guevara Performed By: Reginaldo Chambers RVT
[2024-06-13 12:10] LABS: Absolute Lymphocyte Count 1.16 X10^3/uL (0.83-4.51); Absolute Neutrophil Count 3.2 X10^3/uL (2.0-7.7); Basophil# 0.03 X10^3/uL; Basophil% 0.6 % (0-1); Eosinophil# 0.14 X10^3/uL; Eosinophils% 2.9 % (0-5); Hematocrit 31.9 % (37-47); Hemoglobin 10.2 g/dL (12.0-15.0); Lymphocyte # 1.16 X10^3/ul (0.83-4.51); Lymphocyte % 23.6 % (19-41); Mean Corpuscular Volume 87.6 fL (81-99); Monocyte# 0.36 X10^3/uL; Monocyte% 7.3 % (0-10); NRBC Flagged by Analyzer 0 % (0-5); Neutrophil # 3.21 X10^3/uL (2.7-7.7); Neutrophil % 65.4 % (47-70); Platelet Count 194 K/mm3 (150-450); RBC Distribution Width CV 14.1 % (11.6-14.6); RBC Distribution Width SD 44.2 fl (35.1-43.9); Red Blood Count 3.64 M/mm3 (4.2-5.4); White Blood Count 4.9 K/mm3 (4.4-11.0)
[2024-06-13 14:23] LABS: AST(SGOT) 32 U/L (15-37); Alanine Aminotransfer ALT/SGPT 35 U/L (13-56); Albumin, Serum 3.6 g/dL (3.2-5.0); Alkaline Phosphatase 85 U/L (45-117); Anion Gap 8 (5-15); BUN 18 mg/dL (7-18); Calcium,Total 9.5 mg/dL (8.5-10.1); Chloride 106 mmol/L (98-107); Creatinine, Serum 1.06 mg/dL (0.55-1.02); EST Glomerular Filtration Rate 52 mL/min (>60); Est Glom Filt Rate - Afr Amer 63 mL/min (>60); Globulin 3.6 g/dL (2.2-4.2); Glucose 101 mg/dL (74-106); Potassium 4.5 mmol/L (3.5-5.1); Protein, Total 7.2 g/dL (6.4-8.2); Sodium Level 137 mmol/L (136-145)
== END | disposition home or self-care (01) ==
PROVIDERS: Internal Medicine Rheumatology; PCP Internal Medicine; Referring Provider Physician Assistant; Visit Provider Physician Assistant
DX: M06.4 Inflammatory polyarthropathy (principal); M32.9 Systemic lupus erythematosus, unspecified; Z79.899 Other long term (current) drug therapy; I65.23 Occlusion and stenosis of bilateral carotid arteries
CPT/HCPCS: 36415; 80053; 85025; 93880

== ENCOUNTER → 2024-08-17 | Outpatient (CLI) | payer MEDICARE, BC, SELFPAY ==
[2024-08-17 12:15] LABS: Absolute Lymphocyte Count 1.37 X10^3/uL (0.83-4.51); Absolute Neutrophil Count 3.7 X10^3/uL (2.0-7.7); Basophil# 0.03 X10^3/uL; Basophil% 0.5 % (0-1); Eosinophil# 0.16 X10^3/uL; Eosinophils% 2.8 % (0-5); Hematocrit 32.4 % (37-47); Hemoglobin 10.2 g/dL (12.0-15.0); Lymphocyte # 1.37 X10^3/ul (0.83-4.51); Lymphocyte % 24.2 % (19-41); Mean Corp Hgb Conc 31.5 g/dL (32-36); Mean Corpuscular Hgb 28.4 pg (27.0-32.0); Mean Corpuscular Volume 90.3 fL (81-99); Mean Platelet Vol. 9.8 fl (6.2-12.0); Monocyte# 0.43 X10^3/uL; Monocyte% 7.6 % (0-10); NRBC Flagged by Analyzer 0 % (0-5); Neutrophil # 3.65 X10^3/uL (2.7-7.7); Neutrophil % 64.7 % (47-70); Platelet Count 222 K/mm3 (150-450); RBC Distribution Width CV 15.3 % (11.6-14.6); RBC Distribution Width SD 50.7 fl (35.1-43.9); Red Blood Count 3.59 M/mm3 (4.2-5.4); White Blood Count 5.7 K/mm3 (4.4-11.0)
[2024-08-17 12:51] LABS: ALB/GLOB Ratio 1.1 RATIO (0.9-2.4); AST(SGOT) 33 U/L (15-37); Alanine Aminotransfer ALT/SGPT 32 U/L (13-56); Albumin, Serum 3.9 g/dL (3.2-5.0); Alkaline Phosphatase 72 U/L (45-117); Anion Gap 7 (5-15); BUN 20 mg/dL (7-18); BUN/Creat Ratio 16.1 RATIO (10-20); Calcium,Total 9.6 mg/dL (8.5-10.1); Chloride 105 mmol/L (98-107); Creatinine, Serum 1.24 mg/dL (0.55-1.02); EST Glomerular Filtration Rate 44 mL/min (>60); Est Glom Filt Rate - Afr Amer 53 mL/min (>60); Globulin 3.6 g/dL (2.2-4.2); Glucose 121 mg/dL (74-106); Potassium 4.2 mmol/L (3.5-5.1); Protein, Total 7.5 g/dL (6.4-8.2); Sodium Level 137 mmol/L (136-145)
== END | disposition home or self-care (01) ==
LOC: MFPLAB 10:26
PROVIDERS: PCP Internal Medicine; Visit Provider Internal Medicine Rheumatology
DX: M06.4 Inflammatory polyarthropathy (principal); M32.9 Systemic lupus erythematosus, unspecified; Z79.899 Other long term (current) drug therapy
CPT/HCPCS: 36415; 80053; 85025

== ENCOUNTER → 2024-09-14 | Outpatient (CLI) | payer MEDICARE, BC, SELFPAY ==
[2024-09-14 12:21] LABS: Absolute Lymphocyte Count 1.15 X10^3/uL (0.83-4.51); Absolute Neutrophil Count 3.9 X10^3/uL (2.0-7.7); Basophil# 0.04 X10^3/uL; Basophil% 0.7 % (0-1); Eosinophil# 0.24 X10^3/uL; Eosinophils% 4.2 % (0-5); Hematocrit 32.4 % (37-47); Hemoglobin 10.2 g/dL (12.0-15.0); Lymphocyte # 1.15 X10^3/ul (0.83-4.51); Lymphocyte % 19.9 % (19-41); Mean Corp Hgb Conc 31.5 g/dL (32-36); Mean Corpuscular Hgb 29.2 pg (27.0-32.0); Mean Corpuscular Volume 92.8 fL (81-99); Mean Platelet Vol. 10.2 fl (6.2-12.0); Monocyte# 0.42 X10^3/uL; Monocyte% 7.3 % (0-10); NRBC Flagged by Analyzer 0 % (0-5); Neutrophil # 3.91 X10^3/uL (2.7-7.7); Neutrophil % 67.7 % (47-70); Platelet Count 167 K/mm3 (150-450); RBC Distribution Width CV 14.5 % (11.6-14.6); RBC Distribution Width SD 48.9 fl (35.1-43.9); Red Blood Count 3.49 M/mm3 (4.2-5.4); White Blood Count 5.8 K/mm3 (4.4-11.0)
[2024-09-14 12:58] LABS: ALB/GLOB Ratio 1.1 RATIO (0.9-2.4); AST(SGOT) 32 U/L (15-37); Alanine Aminotransfer ALT/SGPT 33 U/L (13-56); Albumin, Serum 3.7 g/dL (3.2-5.0); Alkaline Phosphatase 93 U/L (45-117); Anion Gap 6 (5-15); BUN 30 mg/dL (7-18); BUN/Creat Ratio 29.1 RATIO (10-20); Calcium,Total 9.7 mg/dL (8.5-10.1); Chloride 107 mmol/L (98-107); Creatinine, Serum 1.03 mg/dL (0.55-1.02); EST Glomerular Filtration Rate 54 mL/min (>60); Est Glom Filt Rate - Afr Amer 65 mL/min (>60); Globulin 3.5 g/dL (2.2-4.2); Glucose 116 mg/dL (74-106); Potassium 4.4 mmol/L (3.5-5.1); Protein, Total 7.2 g/dL (6.4-8.2); Sodium Level 138 mmol/L (136-145)
== END | disposition home or self-care (01) ==
LOC: MFPLAB 10:31
PROVIDERS: PCP Internal Medicine; Visit Provider Internal Medicine Rheumatology
DX: M06.4 Inflammatory polyarthropathy (principal); Z79.899 Other long term (current) drug therapy
CPT/HCPCS: 36415; 80053; 85025

== ENCOUNTER → 2024-12-09 | Outpatient (CLI) | payer MEDICARE, BC, SELFPAY ==
[2024-12-09 12:03] LABS: Absolute Lymphocyte Count 0.67 X10^3/uL (0.83-4.51); Basophil# 0.04 X10^3/uL; Basophil% 0.8 % (0-1); Eosinophil# 0.13 X10^3/uL; Eosinophils% 2.4 % (0-5); Hematocrit 28.8 % (37-47); Hemoglobin 9.3 g/dL (12.0-15.0); Lymphocyte # 0.67 X10^3/ul (0.83-4.51); Lymphocyte % 12.6 % (19-41); Mean Corp Hgb Conc 32.3 g/dL (32-36); Mean Corpuscular Hgb 29.8 pg (27.0-32.0); Mean Corpuscular Volume 92.3 fL (81-99); Mean Platelet Vol. 10.2 fl (6.2-12.0); Monocyte# 0.48 X10^3/uL; NRBC Flagged by Analyzer 0 % (0-5); Neutrophil # 3.98 X10^3/uL (2.7-7.7); Neutrophil % 74.6 % (47-70); Platelet Count 204 K/mm3 (150-450); RBC Distribution Width CV 14.2 % (11.6-14.6); RBC Distribution Width SD 45.4 fl (35.1-43.9); Red Blood Count 3.12 M/mm3 (4.2-5.4); White Blood Count 5.3 K/mm3 (4.4-11.0)
[2024-12-09 12:15] LABS: ALB/GLOB Ratio 1.1 RATIO (0.9-2.4); AST(SGOT) 26 U/L (15-37); Alanine Aminotransfer ALT/SGPT 24 U/L (13-56); Albumin, Serum 3.6 g/dL (3.2-5.0); Alkaline Phosphatase 77 U/L (45-117); Anion Gap 5 (5-15); BUN 25 mg/dL (7-18); Calcium,Total 9.4 mg/dL (8.5-10.1); Chloride 107 mmol/L (98-107); Creatinine, Serum 1.19 mg/dL (0.55-1.02); EST Glomerular Filtration Rate 46 mL/min (>60); Est Glom Filt Rate - Afr Amer 55 mL/min (>60); Globulin 3.4 g/dL (2.2-4.2); Glucose 125 mg/dL (74-106); Potassium 4.3 mmol/L (3.5-5.1); Sodium Level 137 mmol/L (136-145)
== END | disposition home or self-care (01) ==
LOC: MFPLAB 10:41
PROVIDERS: PCP Internal Medicine; Visit Provider Internal Medicine Rheumatology
DX: M06.4 Inflammatory polyarthropathy (principal); M32.9 Systemic lupus erythematosus, unspecified; M19.041 Primary osteoarthritis, right hand; Z79.899 Other long term (current) drug therapy
CPT/HCPCS: 36415; 80053; 85025

== ENCOUNTER → 2025-01-09 | Outpatient (CLI) | payer MEDICARE, BC, SELFPAY ==
[2025-01-09 12:56] LABS: ALB/GLOB Ratio 1.1 RATIO (0.9-2.4); AST(SGOT) 27 U/L (15-37); Alanine Aminotransfer ALT/SGPT 36 U/L (13-56); Albumin, Serum 4.1 g/dL (3.2-5.0); Alkaline Phosphatase 71 U/L (45-117); Anion Gap 7 (5-15); BUN 30 mg/dL (7-18); BUN/Creat Ratio 25.2 RATIO (10-20); Calcium,Total 9.6 mg/dL (8.5-10.1); Chloride 107 mmol/L (98-107); Creatinine, Serum 1.19 mg/dL (0.55-1.02); EST Glomerular Filtration Rate 46 mL/min (>60); Est Glom Filt Rate - Afr Amer 55 mL/min (>60); Globulin 3.8 g/dL (2.2-4.2); Glucose 95 mg/dL (74-106); Potassium 4.1 mmol/L (3.5-5.1); Protein, Total 7.9 g/dL (6.4-8.2); Sodium Level 139 mmol/L (136-145)
== END | disposition home or self-care (01) ==
LOC: MFPLAB 10:49
PROVIDERS: PCP Internal Medicine; Visit Provider Internal Medicine Rheumatology
DX: M06.4 Inflammatory polyarthropathy (principal); M32.9 Systemic lupus erythematosus, unspecified; Z79.899 Other long term (current) drug therapy
CPT/HCPCS: 36415; 80053

== ENCOUNTER → 2025-03-14 | Outpatient (CLI) | payer MEDICARE, BC, SELFPAY ==
[2025-03-14 11:46] LABS: Absolute Neutrophil Count 4.9 X10^3/uL (2.0-7.7); Basophil# 0.04 X10^3/uL; Basophil% 0.6 % (0-1); Eosinophil# 0.22 X10^3/uL; Eosinophils% 3.2 % (0-5); Hematocrit 33.5 % (37-47); Hemoglobin 10.6 g/dL (12.0-15.0); Lymphocyte % 18.8 % (19-41); Mean Corp Hgb Conc 31.6 g/dL (32-36); Mean Corpuscular Volume 88.6 fL (81-99); Monocyte# 0.46 X10^3/uL; Monocyte% 6.6 % (0-10); NRBC Flagged by Analyzer 0 % (0-5); Neutrophil # 4.89 X10^3/uL (2.7-7.7); Neutrophil % 70.5 % (47-70); Platelet Count 158 K/mm3 (150-450); RBC Distribution Width CV 13.5 % (11.6-14.6); RBC Distribution Width SD 43.8 fl (35.1-43.9); Red Blood Count 3.78 M/mm3 (4.2-5.4); White Blood Count 6.9 K/mm3 (4.4-11.0)
[2025-03-14 12:26] LABS: ALB/GLOB Ratio 1.5 RATIO (0.9-2.4); AST(SGOT) 37 U/L (<=31); Alanine Aminotransfer ALT/SGPT 41 U/L (<=34); Albumin, Serum 4.1 g/dL (3.4-4.8); Alkaline Phosphatase 64 U/L (35-104); Anion Gap 9 (5-15); BUN 23 mg/dL (4-19); BUN/Creat Ratio 23.9 RATIO (10-20); Calcium,Total 9.8 mg/dL (7.6-11.0); Carbon Dioxide 25.2 mmol/L (21.0-32.0); Chloride 107 mmol/L (98-108); Cholesterol 161 mg/dL (<=200); Creatinine, Serum 0.96 mg/dL (0.70-1.20); EST Glomerular Filtration Rate 57 (>60); Globulin 2.7 g/dL (2.2-4.2); Glucose 90 mg/dL (70-99); High Density Lipoprotein 57 mg/dL; Low Density Lipoprotein Calc. 70 mg/dL; Potassium 4.6 mmol/L (3.3-5.1); Protein, Total 6.8 g/dL (5.9-8.4); Sodium Level 142 mmol/L (133-145); Triglycerides 170 mg/dL; Very Low Density Lipoprotein 34 mg/dL (5-40); cholesterol:hdl ratio screen 2.82
== END | disposition home or self-care (01) ==
LOC: LAB 10:54
PROVIDERS: PCP Internal Medicine; Referring Provider Nurse Practitioner Gerontology; Visit Provider Nurse Practitioner Gerontology
DX: E78.00 Pure hypercholesterolemia, unspecified (principal); I10 Essential (primary) hypertension
CPT/HCPCS: 36415; 80053; 80061; 85025

== ENCOUNTER → 2025-04-14 | Outpatient (CLI) | payer MEDICARE, BC, SELFPAY ==
[2025-04-14 10:32] LABS: Absolute Lymphocyte Count 1.25 X10^3/uL (0.83-4.51); Absolute Neutrophil Count 4.4 X10^3/uL (2.0-7.7); Basophil# 0.03 X10^3/uL; Basophil% 0.5 % (0-1); Eosinophil# 0.14 X10^3/uL; Eosinophils% 2.2 % (0-5); Hematocrit 33.4 % (37-47); Hemoglobin 10.6 g/dL (12.0-15.0); Lymphocyte # 1.25 X10^3/ul (0.83-4.51); Mean Corp Hgb Conc 31.7 g/dL (32-36); Mean Corpuscular Hgb 27.3 pg (27.0-32.0); Mean Corpuscular Volume 86.1 fL (81-99); Monocyte# 0.47 X10^3/uL; Monocyte% 7.5 % (0-10); NRBC Flagged by Analyzer 0 % (0-5); Neutrophil # 4.36 X10^3/uL (2.7-7.7); Neutrophil % 69.6 % (47-70); Platelet Count 168 K/mm3 (150-450); RBC Distribution Width CV 13.3 % (11.6-14.6); RBC Distribution Width SD 41.2 fl (35.1-43.9); Red Blood Count 3.88 M/mm3 (4.2-5.4); White Blood Count 6.3 K/mm3 (4.4-11.0)
[2025-04-14 11:01] LABS: ALB/GLOB Ratio 1.5 RATIO (0.9-2.4); AST(SGOT) 31 U/L (<=31); Alanine Aminotransfer ALT/SGPT 24 U/L (<=34); Albumin, Serum 4.1 g/dL (3.4-4.8); Alkaline Phosphatase 67 U/L (35-104); Anion Gap 11 (5-15); BUN 22 mg/dL (4-19); BUN/Creat Ratio 19.5 RATIO (10-20); Calcium,Total 9.5 mg/dL (7.6-11.0); Carbon Dioxide 23.3 mmol/L (21.0-32.0); Chloride 100 mmol/L (98-108); Creatinine, Serum 1.12 mg/dL (0.70-1.20); EST Glomerular Filtration Rate 48 (>60); Globulin 2.8 g/dL (2.2-4.2); Glucose 112 mg/dL (70-99); Potassium 4.4 mmol/L (3.3-5.1); Protein, Total 6.9 g/dL (5.9-8.4); Sodium Level 134 mmol/L (133-145); Total Bilirubin 0.52 mg/dL (0.00-1.30)
== END | disposition home or self-care (01) ==
LOC: MFPLAB 09:19
PROVIDERS: PCP Internal Medicine; Visit Provider Internal Medicine Rheumatology
DX: M06.4 Inflammatory polyarthropathy (principal); M32.9 Systemic lupus erythematosus, unspecified; Z79.899 Other long term (current) drug therapy
CPT/HCPCS: 36415; 80053; 85025

== ENCOUNTER → 2025-06-05 | Outpatient (CLI) | payer MEDICARE, BC, SELFPAY ==
[2025-06-05 12:22] LABS: Hematocrit 33.7 % (37-47); Hemoglobin 10.9 g/dL (12.0-15.0); Immature Granulocytes Count 0.010 X10^3/uL (0.0-0.0); Mean Corp Hgb Conc 32.3 g/dL (32-36); Mean Corpuscular Volume 84.9 fL (81-99); Mean Platelet Vol. 10.7 fl (6.2-12.0); NRBC Flagged by Analyzer 0 % (0-5); Platelet Count 168 K/mm3 (150-450); RBC Distribution Width CV 13.4 % (11.6-14.6); RBC Distribution Width SD 41.8 fl (35.1-43.9); Red Blood Count 3.97 M/mm3 (4.2-5.4); White Blood Count 5.9 K/mm3 (4.4-11.0)
[2025-06-05 13:02] LABS: AST(SGOT) 31 U/L (<=31); Alanine Aminotransfer ALT/SGPT 21 U/L (<=34); Albumin, Serum 4.3 g/dL (3.4-4.8); Alkaline Phosphatase 75 U/L (35-104); Anion Gap 10 (5-15); BUN 23 mg/dL (4-19); BUN/Creat Ratio 22.5 RATIO (10-20); Calcium,Total 9.5 mg/dL (7.6-11.0); Carbon Dioxide 23.0 mmol/L (21.0-32.0); Chloride 106 mmol/L (98-108); Globulin 2.6 g/dL (2.2-4.2); Glucose 91 mg/dL (70-99); Potassium 4.5 mmol/L (3.3-5.1)
== END | disposition home or self-care (01) ==
LOC: MFPLAB 10:08
PROVIDERS: PCP Internal Medicine; Referring Provider Internal Medicine Rheumatology; Visit Provider Internal Medicine Rheumatology
DX: M06.4 Inflammatory polyarthropathy (principal); M32.9 Systemic lupus erythematosus, unspecified; M19.041 Primary osteoarthritis, right hand; Z79.899 Other long term (current) drug therapy
CPT/HCPCS: 36415; 80053; 85025

== ENCOUNTER → 2025-06-15 | Outpatient (CLI) | payer MEDICARE, BC, SELFPAY ==
--- NOTE | 2025-06-15 08:53 | CDU_ITS ---
Reason For Study Reason For Study: HX Lt CEA Rt. Velocities/BP Lt. Velocities/BP Prox CCA 83.0/15.5 cm/sec. Prox CCA 107.0/15.7 cm/sec. Mid CCA 165.6/25.7 cm/sec. Mid CCA 105.2/19.4 cm/sec. Dist CCA 147.5/23.1 cm/sec. Dist CCA 130.8/24.8 cm/sec. Prox ICA 72.3/18.3 cm/sec. Prox ICA 121.6/26.7 cm/sec. Mid ICA 87.1/24.4 cm/sec. Mid ICA 141.7/35.8 cm/sec. Dist ICA 73.6/22.0 cm/sec. Dist ICA 99.0/26.5 cm/sec. Rt. ICA/CCA = 0.5. Lt. ICA/CCA = 1.3. Prox ECA 106.3/0.0 cm/sec. Prox ECA 201.1/14.5 cm/sec. Rt. Vert. 60.9/19.2 cm/sec. Lt. Vert. 17.8/4.9 cm/sec. Right Extracranial The tortuous nature of the right common carotid artery may result in flow velocities overestimating the degree of stenosis. There is intimal thickening but no significant atherosclerotic plaque noted in the right common carotid artery. There is heterogeneous, irregular atherosclerotic plaque noted in the right internal carotid artery. There is heterogeneous, irregular atherosclerotic plaque noted in the right external carotid artery. Antegrade flow is noted in the right vertebral artery. Left Extracranial There is homogeneous, smooth atherosclerotic plaque noted in the left common carotid artery. There is heterogeneous, smooth atherosclerotic plaque noted in the left internal carotid artery. HX CEA. There is heterogeneous, irregular atherosclerotic plaque noted in the left external carotid artery. Antegrade flow is noted in the left vertebral artery. Procedure Carotid Duplex [id number]. This is a Carotid Duplex examination using B-mode, color flow and specral Doppler. The exam was diagnostic. Exam performed in department. VL/Carotid Duplex Ultrasound Interpretation Summary Mild (<50%) stenosis right extracranial internal carotid. Moderate (50-69%) stenosis left extracranial internal carotid. Patent and antegrade vertebrals bilaterally. Ordering Physician: Lashaun Spence Referring Physician: Kathy Guevara Performed By: Reginaldo Chambers RVT
--- NOTE | 2025-06-15 08:53 | CDU_ITS ---
Reason For Study Reason For Study: HX Lt CEA Rt. Velocities/BP Lt. Velocities/BP Prox CCA 83.0/15.5 cm/sec. Prox CCA 107.0/15.7 cm/sec. Mid CCA 165.6/25.7 cm/sec. Mid CCA 105.2/19.4 cm/sec. Dist CCA 147.5/23.1 cm/sec. Dist CCA 130.8/24.8 cm/sec. Prox ICA 72.3/18.3 cm/sec. Prox ICA 121.6/26.7 cm/sec. Mid ICA 87.1/24.4 cm/sec. Mid ICA 141.7/35.8 cm/sec. Dist ICA 73.6/22.0 cm/sec. Dist ICA 99.0/26.5 cm/sec. Rt. ICA/CCA = 0.5. Lt. ICA/CCA = 1.3. Prox ECA 106.3/0.0 cm/sec. Prox ECA 201.1/14.5 cm/sec. Rt. Vert. 60.9/19.2 cm/sec. Lt. Vert. 17.8/4.9 cm/sec. Right Extracranial The tortuous nature of the right common carotid artery may result in flow velocities overestimating the degree of stenosis. There is intimal thickening but no significant atherosclerotic plaque noted in the right common carotid artery. There is heterogeneous, irregular atherosclerotic plaque noted in the right internal carotid artery. There is heterogeneous, irregular atherosclerotic plaque noted in the right external carotid artery. Antegrade flow is noted in the right vertebral artery. Left Extracranial There is homogeneous, smooth atherosclerotic plaque noted in the left common carotid artery. There is heterogeneous, smooth atherosclerotic plaque noted in the left internal carotid artery. HX CEA. There is heterogeneous, irregular atherosclerotic plaque noted in the left external carotid artery. Antegrade flow is noted in the left vertebral artery. Procedure Carotid Duplex [id number]. This is a Carotid Duplex examination using B-mode, color flow and specral Doppler. The exam was diagnostic. Exam performed in department. VL/Carotid Duplex Ultrasound Interpretation Summary Mild (<50%) stenosis right extracranial internal carotid. Moderate (50-69%) stenosis left extracranial internal carotid. Patent and antegrade vertebrals bilaterally. Ordering Physician: Lashaun Spence Referring Physician: Kathy Guevara Performed By: Reginaldo Chambers RVT
== END | disposition home or self-care (01) ==
LOC: CVS 08:51
PROVIDERS: PCP Internal Medicine; Referring Provider Physician Assistant; Visit Provider Physician Assistant
DX: Z48.812 Encounter for surgical aftercare following surgery on the circulatory system (principal)
CPT/HCPCS: 93880

== ENCOUNTER → 2025-08-07 | Outpatient (CLI) | payer MEDICARE, BC, SELFPAY ==
[2025-08-07 18:33] LABS: Hematocrit 33.2 % (37-47); Hemoglobin 10.7 g/dL (12.0-15.0); Immature Granulocytes Count 0.010 X10^3/uL (0.0-0.0); Mean Corp Hgb Conc 32.2 g/dL (32-36); Mean Corpuscular Volume 86.2 fL (81-99); Mean Platelet Vol. 11.4 fl (6.2-12.0); NRBC Flagged by Analyzer 0 % (0-5); Platelet Count 147 K/mm3 (150-450); RBC Distribution Width CV 14.1 % (11.6-14.6); RBC Distribution Width SD 44.1 fl (35.1-43.9); Red Blood Count 3.85 M/mm3 (4.2-5.4); White Blood Count 4.7 K/mm3 (4.4-11.0)
[2025-08-07 19:46] LABS: AST(SGOT) 27 U/L (<=31); Alanine Aminotransfer ALT/SGPT 17 U/L (<=34); Albumin, Serum 4.0 g/dL (3.4-4.8); Alkaline Phosphatase 62 U/L (35-104); Anion Gap 13 (5-15); BUN 18 mg/dL (4-19); BUN/Creat Ratio 17.6 RATIO (10-20); Calcium,Total 9.8 mg/dL (7.6-11.0); Carbon Dioxide 22.8 mmol/L (21.0-32.0); Chloride 105 mmol/L (98-108); Globulin 2.7 g/dL (2.2-4.2); Glucose 91 mg/dL (70-99); Potassium 4.1 mmol/L (3.3-5.1)
== END | disposition home or self-care (01) ==
LOC: MFPLAB 14:43
PROVIDERS: PCP Internal Medicine; Visit Provider Internal Medicine Rheumatology
DX: M06.4 Inflammatory polyarthropathy (principal); M32.9 Systemic lupus erythematosus, unspecified; Z79.899 Other long term (current) drug therapy
CPT/HCPCS: 36415; 80053; 85025